=== PATIENT | female | born 1940 | race Caucasian/White ===

== ENCOUNTER 2018-03-15 10:22 | Outpatient (CLI) | payer OTHER, SELFPAY ==
[2018-03-15 11:58] LABS: Anion Gap 6.8 mmol/L (3-11); BUN 27 mg/dL (7-18); CO2 28.2 mmol/L (21.0-32.0); CREATININE 1.23 mg/dL (0.55-1.02); Calcium 9.9 mg/dL (8.5-10.1); Chloride 105 mmol/L (98-107); Estimated GFR 42.45 (mL/min/1.73m2); Glucose 90 mg/dL (70-100); Sodium 140 mmol/L (136-145)
== END 2018-03-15 10:42 ==
PROVIDERS: PCP Family Medicine; Visit Provider Internal Medicine
DX: I87.2 Venous insufficiency (chronic) (peripheral) (principal); R60.9 Edema, unspecified; I10 Essential (primary) hypertension
CPT/HCPCS: 36415; 80048

== ENCOUNTER 2021-05-16 15:31 | Emergency (ER) | payer MEDICARE, SELFPAY ==
[2021-05-16 15:35] VITALS: BP 150/90; PULSE 72; RESP 14; TEMP 36.1; O2SAT 96
--- NOTE | 2021-05-16 16:12 | ED.GENADUL_ITS ---
Discharge Plan Disposition Patient Disposition: HOME Condition: Stable Discharge Details Clinical Impression: Hand laceration Primary Care Provider: Brook Gomez ED Provider: Pascual Nam Home Meds and New Rx's Prescriptions: Continued levothyroxine 50 mcg Capsule 50 mcg PO DAILY RF: 0 Eliquis 5 mg Tablet 5 mg DAILY RF: 0 losartan 50 MG tablet 0.5 tab PO DAILY RF: 0 diclofenac sodium (bulk) 1,000 GM powder 1 gr . QID RF: 0 atorvastatin [Lipitor] 20 MG tablet 20 mg PO DAILY RF: 0 gabapentin 300 MG capsule 600 mg PO BID RF: 0 multivitamin 1 EACH capsule 1 tab PO DAILY RF: 0 cholecalciferol (vitamin D3) 1,000 UNITS tablet 2,000 units PO DAILY RF: 0 Vitamin C (ascorbate calcium) 480 GM powder 1 tab PO DAILY RF: 0 Discharge Instructions Instructions: Laceration (ED) Additional Instructions: Watch for any signs of infection and return immediately to the emergency department if these occur. Otherwise keep dressing in place for the next 24-48 hours and then keep wound clean and dry. Return to the emergency department 7 d ays for suture removal. HPI <Ileana Arechiga - Last Filed: 05/16/21 16:16> General Mode of arrival: ambulatory . Date/Time Provider Initiated Documentation: 05/16/21 16:12 . Limitations to Documentation: no limitations . Information obtained by: patient and RN notes reviewed . HPI Narrative: 81 year old female presents to ED with Right Palmar eminence Laceration which occured at approximately 1130 am. She has full ROM to Thumb. She is unsure of method of injury but reports she did grab onto a door casing and sustained a contusion to her right inner forearm and thinks this might have been where she cut her hand. She has a arrow shaped laceration/skin tear noted and bleeding is controlled upon initial examination. Patient is on Eliquis. PMHx includes HTN, Cushings disease. She is unsure of her last Tetanus vaccination. She has no other complaints, is alert and oriented. Related Data Home Medications Medication Instructions Recorded Confirmed Vitamin C (ascorbate calcium) 1 tab PO DAILY 07/22/17 05/16/21 atorvastatin [Lipitor] 20 mg PO DAILY 07/22/17 05/16/21 cholecalciferol (vitamin D3) 2,000 units PO DAILY 07/22/17 05/16/21 diclofenac sodium (bulk) 1 gr . QID 07/22/17 07/22/17 gabapentin 600 mg PO BID 07/22/17 05/16/21 losartan 0.5 tab PO DAILY 07/22/17 05/16/21 multivitamin 1 tab PO DAILY 07/22/17 05/16/21 Eliquis 5 mg DAILY 05/16/21 05/16/21 levothyroxine 50 mcg PO DAILY 05/16/21 05/16/21 Allergies Allergy/AdvReac Type Severity Reaction Status Date / Time adhesive tape Allergy Intermediate Unverified 05/16/21 15:43 Penicillins Allergy Unknown Unverified 05/16/21 15:43 pregabalin [From Lyrica] Allergy Unknown Unverified 05/16/21 15:43 Sulfa (Sulfonamide Allergy Unknown Unverified 05/16/21 15:43 Antibiotics) latex Allergy Unverified 05/16/21 15:43 General Stated Complaint: Laceration YAMILA: 3 Review of Systems <Ileana Arechiga - Last Filed: 05/16/21 16:16> All systems reviewed & are unremarkable except as noted in HPI and below PFSH <Ileana Arechiga - Last Filed: 05/16/21 16:16> All Active Problems (Updated 05/16/21 @ 17:09 by Pascual Nam NP) Hand laceration (Acute) Sensorineural hearing loss (SNHL) of both ears (Acute) Social History Smoking/Tobacco Use Status: Never Smoking risk assessment performed?: Yes Alcohol Intake: never Drug use: Never Substance use type: does not use Do you feel safe at home: Yes Do you feel safe in your relationship?: Yes Course <Ileana Arechiga - Last Filed: 05/16/21 16:16> Vital Signs Vital signs: Vital Signs Temperature 36.1 C L 05/16/21 15:35 Pulse 72 05/16/21 15:35 Respiratory Rate 14 05/16/21 15:35 Blood Pressure 150/90 H 05/16/21 15:35 Pulse Oximetry 96 05/16/21 15:35 Temperature 36.1 C L 05/16/21 15:35 Temperature Source Temporal Artery Scan 05/16/21 15:35 Pulse 72 05/16/21 15:35 Respiratory Rate 14 05/16/21 15:35 Respiratory Effort Non-Labored 05/16/21 15:42 Blood Pressure 150/90 H 05/16/21 15:35 Blood Pressure Position Sitting 05/16/21 15:35 Pulse Oximetry 96 05/16/21 15:35 Oxygen Delivery Method Room Air 05/16/21 15:35 Oxygen Flow Rate 0 05/16/21 15:35 Pain Level 0 05/16/21 15:35
[2021-05-16 17:28] VITALS: BP 150/90; PULSE 72; RESP 14; TEMP 36.1; O2SAT 96
--- NOTE | 2021-05-17 11:21 | ED.GENADUL_ITS ---
Discharge Plan Disposition Patient Disposition: HOME Condition: Stable Discharge Details Clinical Impression: Hand laceration Primary Care Provider: Brook Gomez ED Provider: Pascual Nam Home Meds and New Rx's Prescriptions: Continued levothyroxine 50 mcg Capsule 50 mcg PO DAILY RF: 0 Eliquis 5 mg Tablet 5 mg DAILY RF: 0 losartan 50 MG tablet 0.5 tab PO DAILY RF: 0 diclofenac sodium (bulk) 1,000 GM powder 1 gr . QID RF: 0 atorvastatin [Lipitor] 20 MG tablet 20 mg PO DAILY RF: 0 gabapentin 300 MG capsule 600 mg PO BID RF: 0 multivitamin 1 EACH capsule 1 tab PO DAILY RF: 0 cholecalciferol (vitamin D3) 1,000 UNITS tablet 2,000 units PO DAILY RF: 0 Vitamin C (ascorbate calcium) 480 GM powder 1 tab PO DAILY RF: 0 Discharge Instructions Instructions: Laceration (ED) Additional Instructions: Watch for any signs of infection and return immediately to the emergency department if these occur. Otherwise keep dressing in place for the next 24-48 hours and then keep wound clean and dry. Return to the emergency department 7 d ays for suture removal. Discharge Data Discharge Date/Time-TO BE ENTERED AT DEPARTURE: 05/16/21 17:36 Medical Decision Making Patient presenting to the emergency department for chief complaint of right hand laceration. This occurred when she attempted to catch herself from falling and grabbed the door trim. Patient has no other complaint at this time. States no loss of consciousness or head injury. Patient has flap laceration to the thenar eminence of the right hand that is subcutaneous but otherwise clean with all deep structures intact. Please see procedure note for wound repair. Tetanus was updated. HPI General Mode of arrival: ambulatory . Date/Time Provider Initiated Documentation: 05/16/21 16:12 . Limitations to Documentation: no limitations . Information obtained by: patient . History of Present Illness 81 year old F presents to the emergency department with the chief complaint of Right hand laceration, described as mild, with intensity rated at 2. Quality is described as aching and sharp, and is localized to the right and upper extremity. Patient reports no radiation. Patient started experiencing this hour(s) (1) and it has been constant. No relieving factors improve symptom(s), Movement worsens symptoms . Patient notes no other symptoms.. Patient did receive the following treatments prior to arrival, none Related Data Home Medications Medication Instructions Recorded Confirmed Vitamin C (ascorbate calcium) 1 tab PO DAILY 07/22/17 05/16/21 atorvastatin [Lipitor] 20 mg PO DAILY 07/22/17 05/16/21 cholecalciferol (vitamin D3) 2,000 units PO DAILY 07/22/17 05/16/21 diclofenac sodium (bulk) 1 gr . QID 07/22/17 07/22/17 gabapentin 600 mg PO BID 07/22/17 05/16/21 losartan 0.5 tab PO DAILY 07/22/17 05/16/21 multivitamin 1 tab PO DAILY 07/22/17 05/16/21 Eliquis 5 mg DAILY 05/16/21 05/16/21 levothyroxine 50 mcg PO DAILY 05/16/21 05/16/21 Allergies Allergy/AdvReac Type Severity Reaction Status Date / Time adhesive tape Allergy Intermediate Unverified 05/16/21 15:43 Penicillins Allergy Unknown Unverified 05/16/21 15:43 pregabalin [From Lyrica] Allergy Unknown Unverified 05/16/21 15:43 Sulfa (Sulfonamide Allergy Unknown Unverified 05/16/21 15:43 Antibiotics) latex Allergy Unverified 05/16/21 15:43 General Stated Complaint: Laceration YAMILA: 3 Review of Systems All systems reviewed & are unremarkable except as noted in HPI and below Integumentary/Breasts Skin/Breast: Reports as per HPI Hematologic/Lymphatic Hematologic/Lymphatic: Reports easy bruising PFSH All Active Problems (Updated 05/16/21 @ 17:09 by Pascual Nam NP) Hand laceration (Acute) Sensorineural hearing loss (SNHL) of both ears (Acute) Social History Smoking/Tobacco Use Status: Never Smoking risk assessment performed?: Yes Alcohol Intake: never Drug use: Never Substance use type: does not use Do you feel safe at home: Yes Do you feel safe in your relationship?: Yes Exam Const General: cooperative and no acute distress Orientation: alert, awake and oriented x3 Limitations: mental status not altered Resp Effort & Inspection: normal respiratory effort and able to speak in complete sentences Cardio Rate: regular rate Rhythm: regular rhythm Pulses: radial pulses present Neuro General: patient alert, patient awake, patient oriented x3, gait normal, tone normal, moves all extremities, normal light touch, pain and propioception and no focal motor deficits Motor: no movement abnormalities noted Sensory Exam: no sensory deficits noted Extrem General: normal exam except as noted Right upper extremity: elbow/forearm Details: abrasion and ecchymosis, wrist Details: ecchymosis and hand Details: normal capillary refill, neuromotor exam normal, neurosensory exam normal, normal ROM of fingers and laceration (Over the thenar eminence) Course Vital Signs Vital signs: Vital Signs Temperature 36.1 C L 05/16/21 15:35 Pulse 72 05/16/21 15:35 Respiratory Rate 14 05/16/21 15:35 Blood Pressure 150/90 H 05/16/21 15:35 Pulse Oximetry 96 05/16/21 15:35 Temperature 36.1 C L 05/16/21 17:28 Temperature Source Temporal Artery Scan 05/16/21 15:35 Pulse 72 05/16/21 17:28 Respiratory Rate 14 05/16/21 17:28 Respiratory Effort Non-Labored 05/16/21 15:42 Blood Pressure 150/90 H 05/16/21 17:28 Blood Pressure Position Sitting 05/16/21 15:35 Pulse Oximetry 96 05/16/21 17:28 Oxygen Delivery Method Room Air 05/16/21 15:35 Oxygen Flow Rate 0 05/16/21 15:35 Pain Level 2 05/16/21 17:28 Procedures Laceration Laceration 1: Site: hand Side (If applicable): right Size (cm): 2 Description: flap, irregular and clean Depth: simple, single layer Local Anesthetic: Lidocaine 1% Amount of anesthesia used (mL): 3 Pre-repair: wound explored, irrigated extensively and deep structures intact Skin layer closed with: other (Prolene) Size (cm): 4-0 Number of sutures: 4 Technique: simple, interrupted
== END 2021-05-16 17:36 | disposition home or self-care (01) ==
PROVIDERS: Emergency Provider Nurse Practitioner Family; PCP Family Medicine
DX: S61.411A Laceration without foreign body of right hand, initial encounter (principal); W26.8XXA Contact with other sharp object(s), not elsewhere classified, initial encounter
CPT/HCPCS: 12001; 90471

== ENCOUNTER 2021-05-23 14:14 | Emergency (ER) | payer OTHER, SELFPAY ==
[2021-05-23 14:25] VITALS: BP 138/86; PULSE 106; RESP 16; TEMP 36.6; O2SAT 97
--- NOTE | 2021-05-23 14:29 | W.ED.GENAD ---
Discharge Plan Disposition Patient Disposition: HOME Condition: Stable Discharge Details Clinical Impression: Suture check Primary Care Provider: Brook Gomez ED Provider: Amparo Rivera Home Meds and New Rx's Prescriptions: Continued levothyroxine 50 mcg Capsule 50 mcg PO DAILY RF: 0 Eliquis 5 mg Tablet 5 mg DAILY RF: 0 diclofenac sodium (bulk) 1,000 GM powder 1 gr . QID RF: 0 atorvastatin [Lipitor] 20 MG tablet 20 mg PO DAILY RF: 0 gabapentin 300 MG capsule 600 mg PO BID RF: 0 multivitamin 1 EACH capsule 1 tab PO DAILY RF: 0 cholecalciferol (vitamin D3) 1,000 UNITS tablet 2,000 units PO DAILY RF: 0 Vitamin C (ascorbate calcium) 480 GM powder 1 tab PO DAILY RF: 0 No Action glucosamine-chondroitin [Osteo Bi-Flex] 250-200 mg tablet 1 tab PO DAILY RF: 0 losartan 50 mg tablet 25 mg PO BID RF: 0 Discharge Instructions Additional Instructions: Keep wound clean and dry Allow to air dry as this will help it heal faster Return in 3 days for removal Return earlier with fever, chills, worsening pain, spreading redness Discharge Data Discharge Date/Time-TO BE ENTERED AT DEPARTURE: 05/23/21 14:38 Medical Decision Making Unfortunately patient's wound not completely healed and we will remove sutures on day 10, she will return in 3 days for reassessment There is no evidence of secondary infection and patient remains neurovascularly intact HPI General Mode of arrival: ambulatory. Date/Time Provider Initiated Documentation: 05/23/21 14:16. Limitations to Documentation: no limitations. Information obtained by: patient. HPI Narrative: This 81-year-old female presents for suture removal. She is 7 days status post placement to her right thumb. She denies any pain, strength or sensation change, decreased range of motion, or any additional complaints at this time. Related Data Home Medications Medication Instructions Recorded Confirmed Vitamin C (ascorbate calcium) 1 tab PO DAILY 07/22/17 05/26/21 atorvastatin [Lipitor] 20 mg PO DAILY 07/22/17 05/26/21 cholecalciferol (vitamin D3) 2,000 units PO DAILY 07/22/17 05/26/21 diclofenac sodium (bulk) 1 gr . QID 07/22/17 05/26/21 gabapentin 600 mg PO BID 07/22/17 05/26/21 multivitamin 1 tab PO DAILY 07/22/17 05/26/21 Eliquis 5 mg DAILY 05/16/21 05/26/21 levothyroxine 50 mcg PO DAILY 05/16/21 05/26/21 glucosamine-chondroitin 250 mg-200 1 tab PO DAILY tab 05/24/21 05/26/21 mg tablet losartan 50 mg tablet 25 mg PO BID tab 05/24/21 05/26/21 Allergies Allergy/AdvReac Type Severity Reaction Status Date / Time adhesive tape Allergy Intermediate Unverified 05/26/21 14:52 Penicillins Allergy Unknown Unverified 05/26/21 14:52 pregabalin [From Lyrica] Allergy Unknown Unverified 05/26/21 14:52 Sulfa (Sulfonamide Allergy Unknown Unverified 05/26/21 14:52 Antibiotics) latex Allergy Unverified 05/26/21 14:52 General Stated Complaint: SutureRem YAMILA: 5 Review of Systems Narrative: Review of systems negative x3 aside from where indicated PFSH All Active Problems (Updated 05/26/21 @ 15:05 by Ileana Arechiga) Visit for suture removal (Acute) Obesity (Chronic) [place]'s disease (Acute) AVNRT (AV kristyn re-entry tachycardia) (Acute) Afib (Chronic) Hand laceration (Acute) Suture check (Acute) Sensorineural hearing loss (SNHL) of both ears (Acute) Medical History Diabetes mellitus type 2 in obese History of DVT (deep vein thrombosis) History of fracture of right hip Hyperlipidemia Vertigo Surgical History History of revision of total hip arthroplasty 2014 Social History Smoking/Tobacco Use Status: Former Tobacco Use Smoking risk assessment performed?: Yes Alcohol Intake: never Drug use: Never Substance use type: does not use Do you feel safe at home: Yes Do you feel safe in your relationship?: Yes Exam Extrem Other: Right thumb with laceration site, no evidence of infection, still appears open, neurovascularly intact Course Vital Signs Vital signs: Vital Signs Temperature 36.6 C 05/23/21 14:25 Pulse 106 H 05/23/21 14:25 Respiratory Rate 16 05/23/21 14:25 Blood Pressure 138/86 05/23/21 14:25 Pulse Oximetry 97 05/23/21 14:25 Temperature 36.6 C 05/23/21 14:25 Temperature Source Skin 05/23/21 14:25 Pulse 106 H 05/23/21 14:25 Respiratory Rate 16 05/23/21 14:25 Blood Pressure 138/86 05/23/21 14:25 Blood Pressure Position Sitting 05/23/21 14:25 Pulse Oximetry 97 05/23/21 14:25 Oxygen Delivery Method Room Air 05/23/21 14:25 Oxygen Flow Rate 0 05/23/21 14:25
== END 2021-05-23 14:38 | disposition home or self-care (01) ==
LOC: ER 14:37
PROVIDERS: Emergency Provider Physician Assistant; PCP Family Medicine
DX: S61.011D Laceration without foreign body of right thumb without damage to nail, subsequent encounter (principal); X58.XXXA Exposure to other specified factors, initial encounter

== ENCOUNTER 2021-05-26 14:38 | Emergency (ER) | payer MEDICARE, SELFPAY ==
[2021-05-26 14:43] VITALS: BP 141/73; PULSE 82; RESP 16; TEMP 36.1; O2SAT 99
--- NOTE | 2021-05-26 14:54 | ED.GENADUL_ITS ---
Discharge Plan Disposition Patient Disposition: HOME Condition: Stable Discharge Details Clinical Impression: Visit for suture removal Primary Care Provider: Brook Gomez ED Provider: Ileana Arechiga Home Meds and New Rx's Prescriptions: Continued glucosamine-chondroitin [Osteo Bi-Flex] 250-200 mg tablet 1 tab PO DAILY RF: 0 losartan 50 mg tablet 25 mg PO BID RF: 0 levothyroxine 50 mcg Capsule 50 mcg PO DAILY RF: 0 Eliquis 5 mg Tablet 5 mg DAILY RF: 0 diclofenac sodium (bulk) 1,000 GM powder 1 gr . QID RF: 0 atorvastatin [Lipitor] 20 MG tablet 20 mg PO DAILY RF: 0 gabapentin 300 MG capsule 600 mg PO BID RF: 0 cholecalciferol (vitamin D3) 1,000 UNITS tablet 2,000 units PO DAILY RF: 0 Vitamin C (ascorbate calcium) 480 GM powder 1 tab PO DAILY RF: 0 No Action multivitamin 1 EACH capsule 1 tab PO DAILY RF: 0 Discharge Instructions Instructions: Stitches Removal (ED) Additional Instructions: Keep Band-Aid on the area for the next few days. You may apply bacitracin for the next couple of days. Please return for any red streaks or signs of infection. Follow up with primary care provider in 3-5 days. Return to ED sooner if any worsening or concerns. Increase oral fluids. Referrals: Brook Gomez [Primary Care Provider] - 3 days Medical Decision Making 2 sutures removed by myself, 2 sutures removed by hospital staff pharmacist bacitracin and Band- Aid applied post removal. Patient tolerated well. Discussed home care and strict return instructions, verbalized understanding. HPI General Mode of arrival: ambulatory . Date/Time Provider Initiated Documentation: 05/26/21 14:49 . Limitations to Documentation: no limitations . Information obtained by: patient and old records reviewed . HPI Narrative: 81 year old female presents for suture removal. Patient had 4 sutures placed to the right palm approximately 10 days ago. She was seen here on Sunday and was told to come back in 3 days which is today. She does have some scab formation noted. 2 sutures removed without difficulty. Will soak and attempt to remove the second 2. She has full range of motion noted to her hand. Related Data Home Medications Medication Instructions Recorded Confirmed Vitamin C (ascorbate calcium) 1 tab PO DAILY 07/22/17 05/26/21 atorvastatin [Lipitor] 20 mg PO DAILY 07/22/17 05/26/21 cholecalciferol (vitamin D3) 2,000 units PO DAILY 07/22/17 05/26/21 diclofenac sodium (bulk) 1 gr . QID 07/22/17 05/26/21 gabapentin 600 mg PO BID 07/22/17 05/26/21 multivitamin 1 tab PO DAILY 07/22/17 05/26/21 Eliquis 5 mg DAILY 05/16/21 05/26/21 levothyroxine 50 mcg PO DAILY 05/16/21 05/26/21 glucosamine-chondroitin 250 mg-200 1 tab PO DAILY tab 05/24/21 05/26/21 mg tablet losartan 50 mg tablet 25 mg PO BID tab 05/24/21 05/26/21 Allergies Allergy/AdvReac Type Severity Reaction Status Date / Time adhesive tape Allergy Intermediate Unverified 05/26/21 14:52 Penicillins Allergy Unknown Unverified 05/26/21 14:52 pregabalin [From Lyrica] Allergy Unknown Unverified 05/26/21 14:52 Sulfa (Sulfonamide Allergy Unknown Unverified 05/26/21 14:52 Antibiotics) latex Allergy Unverified 05/26/21 14:52 General Stated Complaint: SutureRem YAMILA: 5 Review of Systems Integumentary/Breasts Skin/Breast: Reports wounds (4 sutures noted to right thenar eminence) PFSH All Active Problems (Updated 05/26/21 @ 15:05 by Ileana Arechiga) Visit for suture removal (Acute) Obesity (Chronic) [place]'s disease (Acute) AVNRT (AV kristyn re-entry tachycardia) (Acute) Afib (Chronic) Hand laceration (Acute) Suture check (Acute) Sensorineural hearing loss (SNHL) of both ears (Acute) Medical History Diabetes mellitus type 2 in obese History of DVT (deep vein thrombosis) History of fracture of right hip Hyperlipidemia Vertigo Surgical History History of revision of total hip arthroplasty 2013 Social History Smoking/Tobacco Use Status: Former Tobacco Use Smoking risk assessment performed?: Yes Alcohol Intake: never Drug use: Never Substance use type: does not use Do you feel safe at home: Yes Do you feel safe in your relationship?: Yes Exam Extrem Right upper extremity: hand Details: other (4 sutures noted, scab formation, slight red edges, no warmth, induration or signs of infection.) Course Vital Signs Vital signs: Vital Signs Temperature 36.1 C L 05/26/21 14:43 Pulse 82 05/26/21 14:43 Respiratory Rate 16 05/26/21 14:43 Blood Pressure 141/73 H 05/26/21 14:43 Pulse Oximetry 99 05/26/21 14:43 Temperature 36.1 C L 05/26/21 14:43 Temperature Source Tympanic 05/26/21 14:43 Pulse 82 05/26/21 14:43 Respiratory Rate 16 05/26/21 14:43 Blood Pressure 141/73 H 05/26/21 14:43 Blood Pressure Position Sitting 05/26/21 14:43 Pulse Oximetry 99 05/26/21 14:43 Oxygen Delivery Method Room Air 05/26/21 14:43 Oxygen Flow Rate 0 05/26/21 14:43 Pain Level 0 05/26/21 14:43
[2021-05-26] MEDS: Bacitracin 1 PACKET (15:12)
== END 2021-05-26 15:19 | disposition home or self-care (01) ==
PROVIDERS: Emergency Provider Registered Nurse Emergency; PCP Family Medicine
DX: S61.411D Laceration without foreign body of right hand, subsequent encounter (principal); X58.XXXD Exposure to other specified factors, subsequent encounter; Z48.02 Encounter for removal of sutures

== ENCOUNTER 2021-07-07 13:26 | Outpatient (CLI) | payer MEDICARE, SELFPAY ==
--- NOTE | 2021-07-07 11:33 | DI.RAD_ITS ---
Exam(s) XR KNEE LT 3V AP,LAT,DORY EXAM: XR KNEE LT 3V AP,LAT,DORY CLINICAL HISTORY: pain in knee. TECHNIQUE: 2D digital imaging was performed of the left knee. Three images were obtained. AP, late ral and PA tunnel views were obtained. COMPARISON: No exams were available for comparison FINDINGS: BONES: No acute fracture is present. There is a tiny subcortical lucency in the lateral aspect of th e lateral femoral condyle which may represent an osteochondral defect. JOINTS: Moderately severe degenerative changes are seen in the left knee with joint space narrowing a nd periarticular spurring involving all 3 joint compartments. The findings are most marked at the pa tellofemoral joint. No joint effusion is seen. SOFT TISSUE: Normal. IMPRESSION: Tricompartment osteoarthritis. DATA REPOSITORY: RADIATION DOSE DELIVERED:
== END 2021-07-07 13:27 | disposition home or self-care (01) ==
LOC: DIORS 13:26
PROVIDERS: PCP Family Medicine; Referring Provider Family Medicine; Visit Provider Student in an Organized Health Care Education/Training Program
DX: M25.562 Pain in left knee (principal); M17.12 Unilateral primary osteoarthritis, left knee; S86.112A Strain of other muscle(s) and tendon(s) of posterior muscle group at lower leg level, left leg, initial encounter; X58.XXXA Exposure to other specified factors, initial encounter
CPT/HCPCS: 73562; 99214

== ENCOUNTER 2021-07-19 00:28 | Outpatient (CLI) | payer MEDICARE, SELFPAY ==
--- NOTE | 2021-07-19 08:40 | DI.MRI_ITS ---
Exam(s) MR LOWER EXTREMITY LT WO EXAM: MR LOWER EXTREMITY LT WO CLINICAL HISTORY: pain,rupture lt gastrocnemius muscle,[id number]. TECHNIQUE: Multiplanar multisequence MRI was performed. COMPARISON: No exams were available for comparison FINDINGS: There is significant patient motion artifact present.The patient was unable to complete the examinati on or tolerate repeat sequences. BONES: There is no fracture or contusion pattern. JOINTS: No significant joint effusion is seen in the knee. MUSCLES: The insertion sites of the gastrocnemius muscles are intact. There is fatty atrophy of the gastrocnemius muscles. There is marked fatty atrophy of the medial gastrocnemius muscle, particularl y distally. There is mild edema seen in the proximal lateral gastrocnemius muscle at the level of th e knee joint. The muscle fibers appear intact however. MENISCI: This is not a dedicated MRI of the knee. However, the medial meniscus appears unremarkable. There is degenerative signal seen in the body of the lateral meniscus. SOFT TISSUES: There is edema seen in the subcutaneous tissues of the lower leg. No focal fluid colle ction is seen. Varicose veins are seen in the lower leg. There is skin thickening seen particularly involving the distal half of the leg. LIGAMENTS: The ligaments appear grossly unremarkable. This is however, not a dedicated MRI of the kn ee. OTHER: Incidental note is made of a small popliteal cyst. IMPRESSION: 1. This is a limited examination. The examination is limited by significant patient motion artifact and the patient's inability to complete the examination. 2. Mild edema seen in the proximal aspect of the lateral gastrocnemius muscle. However, there is no evidence of a gastrocnemius muscle tear. 3. Fatty atrophy of the gastrocnemius muscles with marked fatty atrophy of the distal medial gastrocn emius. 4. Subcutaneous edema and skin thickening in the lower leg which may represent cellulitis. No focal fluid collection is seen. 5. Small popliteal cyst. DATA REPOSITORY:
== END 2021-07-19 00:48 ==
PROVIDERS: PCP Family Medicine; Visit Provider Student in an Organized Health Care Education/Training Program
DX: M25.562 Pain in left knee (principal); M71.22 Synovial cyst of popliteal space [Baker], left knee; M62.562 Muscle wasting and atrophy, not elsewhere classified, left lower leg; R60.0 Localized edema; S86.112A Strain of other muscle(s) and tendon(s) of posterior muscle group at lower leg level, left leg, initial encounter; X58.XXXA Exposure to other specified factors, initial encounter
CPT/HCPCS: 73718

== ENCOUNTER → 2021-07-22 09:42 | Outpatient (BNVA) | payer MEDICARE, SELFPAY | PROVIDERS: PCP Family Medicine; Referring Provider Family Medicine; Visit Provider Student in an Organized Health Care Education/Training Program | DX: M17.12 Unilateral primary osteoarthritis, left knee (principal); M17.11 Unilateral primary osteoarthritis, right knee | CPT/HCPCS: 99214 ==

== ENCOUNTER → 2022-01-12 10:09 | Outpatient (BNVA) | payer MEDICARE, SELFPAY | PROVIDERS: PCP Family Medicine; Referring Provider Family Medicine; Visit Provider Student in an Organized Health Care Education/Training Program | DX: Z96.641 Presence of right artificial hip joint (principal); Z96.642 Presence of left artificial hip joint; Z96.651 Presence of right artificial knee joint; M17.12 Unilateral primary osteoarthritis, left knee | CPT/HCPCS: 99213 ==

== ENCOUNTER 2022-02-20 10:52 | Outpatient (CLI) | payer MEDICARE, SELFPAY ==
--- NOTE | 2022-02-23 14:00 | DI.RAD_ITS ---
Exam(s) XR STANDING ALIGNMENT EXAM: XR STANDING ALIGNMENT CLINICAL HISTORY: preoperative TECHNIQUE: COMPARISON: No exams were available for comparison FINDINGS: AP views of the lower extremities were obtained for leg length determination and standing alignment. There are bilateral hip joint replacements. There are moderate degenerative changes of both knees i nvolving medial and lateral tibiofemoral joints.. IMPRESSION: RADIATION DOSE DELIVERED: Total DLP
== END 2022-02-20 10:53 | disposition home or self-care (01) ==
LOC: DIORS 02-28 10:52
PROVIDERS: PCP Family Medicine; Visit Provider Physician Assistant Surgical
DX: M17.12 Unilateral primary osteoarthritis, left knee (principal)
CPT/HCPCS: 77073

== ENCOUNTER → 2022-02-23 14:02 | Outpatient (BNVA) | payer MEDICARE, SELFPAY | PROVIDERS: PCP Family Medicine; Referring Provider Family Medicine; Visit Provider Physician Assistant Surgical | DX: Z01.818 Encounter for other preprocedural examination (principal); M25.562 Pain in left knee ==

== ENCOUNTER 2022-02-27 02:58 | Outpatient (CLI) | payer MEDICARE, SELFPAY ==
[2022-02-27 10:06] LABS: HCT 49.5 % (36.0-46.0); HGB 16.4 g/dL (11.2-15.7); MCH 30.9 pg (27.0-33.0); MCHC 33.1 % (32.0-36.0); MCV 93 fL (80-95); MPV 10.2 fL (8.0-11.0); Platelet Count 237 10^3/uL (130-400); RDW 12.7 % (11.7-14.6); RDW-SD 43.7 fL; WBC 8.61 10^3/uL (4.4-10.8)
[2022-02-27 11:14] LABS: Anion Gap 7.8 mmol/L (3-11); BUN 18 mg/dL (7-18); CO2 31.2 mmol/L (21.0-32.0); Calcium 10.1 mg/dL (8.5-10.1); Chloride 105 mmol/L (98-107); Estimated GFR 56.95 (mL/min/1.73m2); Glucose 79 mg/dL (74-106); Potassium 4.2 mmol/L (3.5-5.1); Sodium 144 mmol/L (136-145)
== END 2022-02-27 02:59 | disposition home or self-care (01) ==
LOC: LBO 02:58
PROVIDERS: PCP Family Medicine; Visit Provider Student in an Organized Health Care Education/Training Program
DX: M25.562 Pain in left knee (principal); M17.12 Unilateral primary osteoarthritis, left knee; Z01.818 Encounter for other preprocedural examination; Z01.812 Encounter for preprocedural laboratory examination
CPT/HCPCS: 36415; 80048; 85027

== ENCOUNTER 2022-03-01 07:27 | Observation (INO) | payer MEDICARE, SELFPAY ==
[2022-03-01] VITALS (18 sets, daily range): BP systolic 86–166; BP diastolic 34–102; PULSE 38–67; RESP 15–22; TEMP 35.4–36.7; O2SAT 93–99; BMI 45.1
--- NOTE | 2022-03-01 06:12 | W.ANESPRE ---
General Info Date of Service Date Performed: 03/01/22 Height: 5 ft 3 in Weight: 115.468 kg Body Mass Index (BMI): 45.1 Surgical Procedure: Operation Date: 03/01/22 07:40 Proposed Procedure Side Surgeon p Knee Total Arthroplasty Cementless Left Mc Bergman MD Meds Allergies and Home Medications Allergies Allergy/AdvReac Type Severity Reaction Status Date / Time adhesive tape Allergy Intermediate Verified 03/01/22 06:16 Penicillins Allergy Unknown Verified 03/01/22 06:16 pregabalin [From Lyrica] Allergy Unknown Verified 03/01/22 06:16 Sulfa (Sulfonamide Allergy Unknown Verified 03/01/22 06:16 Antibiotics) latex Allergy Verified 03/01/22 06:16 Home Medication Medication Instructions Recorded ascorbate calcium (vitamin C) 814 1 tab PO DAILY 07/22/17 mg/gram oral powder (Vitamin C (ascorbate calcium)) atorvastatin 20 mg tablet (Lipitor) 20 mg PO DAILY 07/22/17 cholecalciferol (vitamin D3) 25 2,000 units PO DAILY 07/22/17 mcg (1,000 unit) tablet diclofenac sodium (bulk) 100% 1 gr . QID 07/22/17 powder gabapentin 300 mg capsule 600 mg PO BID 07/22/17 multivitamin 1 tab PO DAILY 07/22/17 levothyroxine 50 mcg capsule 50 mcg PO DAILY 05/16/21 losartan 50 mg tablet 25 mg PO BID 05/24/21 triamterene 37.5 0.5 tab PO DAILY 01/12/22 mg-hydrochlorothiazide 25 mg tablet apixaban 5 mg tablet (Eliquis) 5 mg PO BID 01/13/22 Current Visit Medications: Current Medications Generic Name Dose Route Start Last Admin Trade Name Freq PRN Reason Stop Dose Admin Acetaminophen 1,000 mg 03/01/22 06:00 Acetaminophen 500 Mg Tab PO PREOP JOEY Celecoxib 400 mg 03/01/22 06:00 Celecoxib 200 Mg Cap PO PREOP JOEY Gabapentin 300 mg 03/01/22 06:00 Gabapentin 300 Mg Cap PO PREOP JOEY Tranexamic Acid 1,000 mg/ 60 mls @ 360 mls/hr 03/01/22 06:00 Sodium Chloride IVPB 03/01/22 18:00 PREOP JOEY Ringer's Solution 1,000 mls @ 80 mls/hr 03/01/22 06:00 IV 11/22 23:59 INFUSION JOEY Cefazolin Sodium 3,000 mg/ 100 mls @ 200 mls/hr 03/01/22 06:00 Sodium Chloride IVPB 03/01/22 18:00 PREOP JOEY IV Miscellaneous Supplies 1 each 03/01/22 06:00 Iv Access IV 03/30/22 23:59 DIRECTED JOEY Sodium Chloride 0 ml 03/01/22 06:00 Normal Saline Flush 10 Ml Syr IV 03/30/22 23:59 PRN PRN Sodium Chloride 0 ml 03/01/22 06:00 Normal Saline 10 Ml Vial IJ 03/30/22 23:59 DIRECTED PRN Sterile Water 0 ml 03/01/22 06:00 Water,Injection,Sterile 10 Ml Vial IJ 03/30/22 23:59 DIRECTED PRN PFSH Active Problems Active Problems: Problem Status Onset Code Sensorineural hearing loss (SNHL) of both ears H90.3 Afib I48.91 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 Obesity E66.9 Osteoarthritis of left knee M17.12 Osteoarthritis of right knee M17.11 Medical History Medical History (Updated 03/01/22 @ 06:15 by Wilner Rodriguez) Asthma Chronic shortness of breath Diabetes mellitus type 2 in obese pt/ denies this History of DVT (deep vein thrombosis) History of fracture of right hip HTN (hypertension) Hyperlipidemia Vertigo Surgical History Surgical History (Updated 02/28/22 @ 10:30 by Jasper Bunn) History of cardiac radiofrequency ablation History of revision of total hip arthroplasty 2013 Tobacco Smoking/Tobacco Use Status: Former Tobacco Use Alcohol Alcohol Intake: never Substance Use Substance use: Never Substance use type: does not use Vital Signs and Lab Results Lab Results Blood Type / Crossmatch: No Data to Display Complete Blood Count: White Blood Count 8.61 10^3/uL (4.4-10.8) 02/27/22 09:59 Red Blood Count 5.30 10^6/uL (3.93-5.22) H 02/27/22 09:59 Hemoglobin 16.4 g/dL (11.2-15.7) H 02/27/22 09:59 Hematocrit 49.5 % (36.0-46.0) H 02/27/22 09:59 Platelet Count 237 10^3/uL (130-400) 02/27/22 09:59 Complete Metabolic Panel: Sodium 144 mmol/L (136-145) 02/27/22 09:59 Potassium 4.2 mmol/L (3.5-5.1) 02/27/22 09:59 Chloride 105 mmol/L (98-107) 02/27/22 09:59 Carbon Dioxide 31.2 mmol/L (21.0-32.0) 02/27/22 09:59 BUN 18 mg/dL (7-18) 02/27/22 09:59 Creatinine 1.0 mg/dL (0.55-1.02) 02/27/22 09:59 Est GFR (CKD-EPI 2020) 56.95 (mL/min/1.73m2) 02/27/22 09:59 Calcium 10.1 mg/dL (8.5-10.1) 02/27/22 09:59 Glucose 79 mg/dL (74-106) 02/27/22 09:59 Liver Function Panel: No Data to Display Coagulation Panel: No Data to Display Cardiac Panel: No Data to Display Arterial Blood Gas: No Data to Display Venous Blood Gas: No Data to Display Pancreas Panel: No Data to Display Thyroid Panel: No Data to Display Infectious Disease: No Data to Display Blood Cultures: No Data to Display Toxicology Panel: No Data to Display Imaging and Studies Imaging and Studies Study information below may be from another EMR and interpreted by another provider. Please see original notes in EMR for more complete details. Echocardiogram Summary: 08/02/21: a fib, normal rv/lv systolic function LVEF 55%, aortic sclerosis without stenosis. Anesthesia Assessment and Plan Anesthesia History Personal History: No History of Anesthesia Complications Family History: No Family History of Anesthesia Complications Exercise Tolerance Exercise Tolerance: Metabolic Equivalents<4 Cardiac & Pulmonary Exam Cardiac Exam: Normal S1/S2 Heart Sounds Pulmonary Exam: Clear Bilateral Breath Sounds Implantable Cardiac Device Does patient have a Pacemaker or an ICD?: No Airway Exam Known Difficult Airway: No Mallampati Class: 2 Mouth Opening: Normal (> 3cm) Thyromental Distance: Less than 3 cm Neck Range of Motion: Full ROM Neck Circumference: Thick Teeth Condition: Normal Dentition ASA Classification ASA Score: ASA 3 Emergency Case?: No NPO Status NPO Status: NPO Clears >2 hours, Solids >8 hours Anesthesia Plan Resuscitation Status: Full Code Anesthesia Technique: Spinal Anesthesia Airway Planned: Natural Airway Pain Management: Surgeon and patient request nerve block Monitors Used: Standard Monitors Preoperative Comments:: 82 yo female for TKA. Sig PMHx: DVT/Afib (apixaban), DM2, vertigo, cushings (fixed), BMI 45, former smoker (quit 1990), never EtOH, hypothyroid (on replacment), CKDIII, HTN (losartan), ADRIENNE (bipap), asthma (PRN albuterol). ECHO: LVEF 55%, no sig valve dz. MPI: no ischemia.
[2022-03-01] MEDS: Celecoxib 200 MG CAP 400 MG PO (06:46)
[2022-03-01] MEDS: Acetaminophen 500 MG TAB 1000 MG PO ×3 (06:47→19:54)
[2022-03-01] MEDS: Gabapentin 300 MG CAP PO (06:48)
[2022-03-01] MEDS: Lactated Ringers 1,000 ML 80 ML IV ×2 (07:02→21:46)
[2022-03-01] MEDS: ceFAZolin 3,000 MG in Normal Saline 100 ML 200 MG IVPB (07:53)
--- NOTE | 2022-03-01 08:37 | W.ANESNERVE ---
Nerve Block Single Injection Procedure Date and Time Date Performed: 03/01/22 Procedure Start: 07:12 Location Where Procedure Performed Procedure Location: Day Surgery Unit Reason Performed: Postoperative Analgesia Requesting Provider: Mc Bergman Timeout Performed Timeout Performed: Yes Monitoring Used ECG, Blood Pressure and SpO2 Sterility Sterility: Hand Hygiene, Surgical Cap, Surgical Mask, Sterile Gloves and Chlorhexidine Sedation Given During Procedure Sedation Given (Indicate Dose Given): No Sedation given Patient Mental Status Patient Mental Status: Awake Nerve Block 1st Nerve Block: Laterality: Left Block Type: Adductor Canal Needle / Catheter Used: 120mm SonoPlex II Local Anesthetic Bolus (Indicate Dose Given): Lidocaine used for local infiltration of skin, Injected in 3-5ml increments after negative blood aspiration and Bupivacaine 0.375% Dose:: 10 mL Additives (Indicate Dose Given): None Ultrasound: Sterile probe cover and gel used Ultrasound Image Saved?: Yes Nerve Stimulator: Not Used Paresthesia: None Procedure Tolerated: No Complications Procedure Outcome: Successful Performed By: Zoraida Rojo Supervised By: Reji Feldman
[2022-03-01] MEDS: ceFAZolin 1 GM/50 ML BAG IVPB ×2 (13:48→21:45)
--- NOTE | 2022-03-01 14:11 | W.ANESPOSTOP ---
Postoperative Evaluation Date, Time and Location Date Performed: 03/01/22 Time Performed: 10:12 Patient Location: PACU Vital Signs Most Recent Imported Vital Signs: Most Recent Vital Signs Temp Pulse Resp BP Pulse Ox 35.4 C L 51 L 16 139/60 97 03/01/22 12:38 03/01/22 12:38 03/01/22 12:38 03/01/22 12:38 03/01/22 12:38 Pain Score Most Recent Pain Score: Most Recent Pain Score Pain Level 0 03/01/22 13:48 Assessment Mental Status: Awake (Alert & Oriented to Patient Baseline) Airway and Respiratory Function: Patent airway with normal (patient baseline) respiratory exam Cardiovascular Function: Hemodynamically Stable Hydration Status: Adequately Hydrated Nausea & Vomiting: No Nausea or Vomiting Pain: Pt. Denies Any Pain Peripheral Nerve Block: Patient did not receive a nerve block
--- NOTE | 2022-03-01 14:44 | PT.INIE ---
Date of service: 03/01/22 Time of Service: 14:44 PT Notes Visit Reasons: TKA Physical Therapy Day Surgery Initial Evaluation Date: 03/01/2022 Referring Doctor: HERBER Kaplan PT Orders: PT CONSULT: S/P Ortho surgery Precautions: WBAT on R LE with AD. Patient Profile/Admitting Diagnosis: Beatriz is an 82-year-old female with primary unilateral osteoarthritis of the right knee and is status post right total knee arthroplasty on postoperative day 0. PMHX: Medical History? Diabetes mellitus type 2 in obese History of DVT (deep vein thrombosis) History of fracture of right hip Hyperlipidemia Vertigo Surgical History? History of revision of total hip arthroplasty 2013 Social History/Home Situation: Lives lone in a private home with one-step to enter with rails on both sides. 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 Equipment Owned/DME: [facility] Subjective: Denies headache, chest pain, lightheadedness. Reports a mild ache in the front of her right thigh that minimally limityed ambulation distance. Objective: General Observation: Supine in bed. IV through right UE. TEDS on left leg. MILTON wraps to R LE. Cryocuff to R knee. Mental Status: Alert and oriented x4. Pain: 2-3/10 in the R anterior thigh ROM: Right Lower Extremity: Hip flexion limited by abdominal pannus. Hip abduction WFL. Knee flexion 20 degrees to 90 degrees. Knee extension -20 degrees. Ankle dorsiflexion to neutral. Ankle plantarflexion WFL. Strength: Right Lower Extremity: Hip flexors 4/5. Hip abductors 4/5. Knee flexors 3-/5. Knee extensors 3-/5. Ankle dorsiflexors 3/5. Ankle plantarflexors 4-/5. Sensation: Intact as to pain and light pressure in bilateral lower extremities Bed Mobility/Transfers: Supine to sit supine to sit with HOB 30 degrees Sit to stand minimal assist Stand to sit contact guard assist Bed to chair contact guard assist Gait: 150 feet using front wheeled walker with step to gait pattern requiring wheelchair follow for safety with report of a mild ache in the left anterior thigh that minimally limited distance. THERA EX: SLR to about 45 degrees x 5 Seated hip flexion x 5 Ankle DF/PF x 10 LAQ x 5 Balance: Static Sitting: Normal Dynamic Sitting: Normal Static Standing: Fair Dynamic Standing: Fair Special Tests: Mobility Limitations Standardized [employer] AM-PAC 6 clicks Basic Mobility Inpatient Short Form: Raw Score: 20 CMS Score: 36% deficit Informed Consent/Education: Patient instructed in purpose of PT consult. Education and training on initial set of exercises that can be done at home have been initiated with patient. Assessment: Beatriz is an 82-year-old female with primary unilateral osteoarthritis of the right knee and is status post right total knee arthroplasty on postoperative day 0. Patient presents with clinical signs and symptoms consistent with current/admitting diagnoses that have resulted to mobility limitations, gait instability, generalized weakness, and impairment of motor control as demonstrated by the following impairment level findings: 1. Decreased strength to R knee major muscle groups 2. Impaired standing balance 3. Limitation of joint range of motion in R knee Impairments are contributing to the following functional limitations: 1. Inability to safely ambulate without assistive device 2. Increase completion time for mobility ADL performance 3. Increased fall risk Patient is assessed as a 86923 moderate complexity based on the following: History: 82-year-old female with impairment level findings, functional limitations, and past medical history as indicated above Examination: Demonstrable impairment in strength, balance, and mobility level with underlying impairments and functional limitations as documented above Presentation: Evolving Decision Makin moderate complexity Goals: Goals X1 week 1. Supine-Sit independent 2. Sit-Supine independent 3. Sit-Stand independent 4. Stand-Sit independent with FWW 5. Bed-Chair independent with FWW 6. Chair-Bed independent with FWW 7. Independent gait on level surface with use of FWW for at least 300 feet without report of pain nor dyspnea 8. Independent stair negotiation while holding onto B rails for at least 3 steps without report of pain nor dyspnea 9. Independent with home exercise program 10. Good static and dynamic standing balance/tolerance Plan of Care/Treatment Plan: 1-2x/day, 7 days/week x 1 week. Plan of care has been reviewed with the DISTRIBUTION TECHNICIAN providing the service under Physical Therapy direction. Initiate Physical Therapy intervention for pain management as needed, strengthening, bed mobility, transfers, gait, stairs, balance training, and use of assistive device. DISCHARGE RECOMMENDATIONS: [] Home with no services [] [X] Home with services. Home when medically cleared by orthopedic surgeon. Patient will benefit from home health PT services in order to progress mobility level using least restrictive assistive ambulatory device, assess home safety, identify additional equipment needs, and establish a functional maintenance program that will increase ability of patient to remain at home. [] Home with outpatient PT [] [] SNF for continued rehabilitation [] [] Paper Folding Machine Operator Care [] [] SNF versus LTC based on ability to participate and progress [] TREATMENT CODE/TIME: 73508 x 20 minutes, 30736 x 26 minutes beginning at 14:44 PM. Thank you for the opportunity to participate in the care of this patient. Irma Paredes PT, DPT, CLT [facility] [place], [place]
[2022-03-01 16:07] LABS: Source Nasal/Nares
[2022-03-01 16:45] LABS: COVID-19 PCR Negative (Negative)
[2022-03-01] MEDS: Normal Saline Flush 10 ML SYR IV (18:07)
--- NOTE | 2022-03-01 19:21 | ROE_ITS ---
Date of service: 03/01/22 Time of Service: 09:30 Operative Note Operative Note DATE OF PROCEDURE: 03/01/22 PRE-OP DIAGNOSIS: Left Knee Osteoarthritis with Osteochondral Lesion POST-OP DIAGNOSIS: same PROCEDURE: [Right][Left] Total Knee Replacement SURGEON: Mc Bergman ELECTRICAL AND INSTRUMENT TECHNICIAN: Caridad Francis ANESTHESIA TYPE: Spinal Refer to Anesthesia Record ESTIMATED BLOOD LOSS: 150 PATHOLOGY: none sent COMPLICATIONS: None Patient was transported to: PACU Patient's condition: stable Implants: 1. Depuy Attune Cruciate Retaining Femoral Component, Size 4 2. Depuy Attune Rotating Platform Tibial Component, Size 4 3. Depuy Attune 4x8 CR,RP Poly 4. Depuy Attune Patellar Component, Size 35 Indications: I have seen Beatriz in clinic for symptoms of knee arthritis, confirmed with radiographic findings. She has exhausted nonoperative methods and was having significant limitations in daily function and desired better function and less pain. I discussed the technical details of a knee replacement. I explained the risks of the procedure to include, but not limited to, bleeding, infection, pain, stiffness, fracture, damage to nerves and vessels, damage to muscles and tendons, loosening, need for repeat procedure, blood clot and cardiopulmonary demise. Despite these risks, Beatriz elected to proceed. Findings: There was significant signs of arthritis throughout the knee with a focal osteochondral defect involving most of the posterior weigh-bearing surface of the lateral femur. Procedure Description: Beatriz was greeted in the preoperative holding area where the correct side was identified and marked. The consent was reviewed with the patient and signed. The history and physical was updated. All questions were answered. Preoperative mediacations were administered: Acetaminophen 1000mg, Celebrex 400mg, and Gabapentin 300mg. An adductor canal block was then administered by the anesthesia team in the PACU. Beatriz was taken back to the operating room. A spinal anesthestic was then administered. The patient was placed into the supine position on the operating room table. A nonsterile tourniquet was placed high onto the leg but only used for cementing. Posts were placed for positioning during the procedure. All bony prominences were well padded. Prophylactic antibiotics in the form of Cefazolin were administered. 1g of Tranxemic Acid was given intravenously within 30 minutes of incision. The left leg was then prepped with Chloraprep and draped in a standard fashion with impervious stockinette and extremity drape. A second prep with Chloraprep was performed prior to placing Ioband. A timeout to confirm correct identity, side and site, procedure, allergies, anesthesia, and medical concerns was performed. With the knee in some flexion, a midline incision was made overlying the knee. Full thickness skin flaps were raised once the extensor mechanism was encountered. These were raised medially and laterally. Any bleeding was controlled with electrocautery. Once the extensor mechanism was fully exposed, a medial parapatellar arthrotomy was performed in a flexed position. All bleeding from the arthrotomy and the geniculate arteries was coagulated. A medial subperiosteal peel was performed with electrocautery to the midcoronal plane. The fat pad was removed while keeping the patellar tendon protected. The anterior distal femur synovium was removed for later visualization. The ACL and PCL were resected and the anterior horn of the lateral meniscus was transected. The knee was then flexed with the patella everted. There was a large osteochondral defect with surrounding cartilage loss involving the majority of the lateral femur, mostly posterior. Using a step drill, and based on preoperative templating, the femoral canal was entered. This was done with a step drill without any difficulty. The intramedullary distal femoral cut guide was inserted, set to a 6 degree valgus cut and 9mm cut thickness. The distal femoral cut guide was then held in position and pinned. With the soft tissues protected, the distal cut was performed. This was passed over a few times to ensure a planar cut. I then turned attention to the tibia. The extramedullary guide was placed onto the leg. The distal aspect was slid medial to adjust for position of center of ankle and stay in line with shaft of the tibia. Approximately 3-5 degrees of posterior slope was kept in the proximal cutting guide. The center of the guide was aligned with the PCL. The stylus was used to assess cut thickness. The medial side, most involved side, was set for a 4mm cut. This was then held in position and pinned into place with 2 additional pins and a cross pin for stability. The medial and lateral collateral ligaments were protected and the cut was performed. With this completed, it was assessed and noted to be of appropriate dimensions. The guide was removed. A spacer block was inserted and the knee was brought into extension. The 8mm spacer block provided full extension, without hyperextension and with stability of both the medial and lateral collateral ligaments was assessed. The pins from the femur and the tibia were then removed. The distal femur was then sized. The anterior stylus was placed onto the lateral ridge of the anterior femur. This indicated a size 4 femur. The external rotation of the guide was adjusted to 0 degrees to match the epicondylar axis, perpendicular to [place]?s line. The 4-in-1 cutting guide was the placed. The posterior medial femur cut was evaluated and appeared of good thickness. The spacer block was inserted underneath the cutting guide and stability was confirmed in 90 degrees of flexion. An adilene wing was used to confirm appropriate position of the anterior cut to avoid notching. This cutting guide was ensured to be flush on the cut surface and then pinned into place with headed pins. While protecting the soft tissues, quad tendon, and collateral ligaments, the anterior and posterior cuts were performed with a saw. The central two pins were removed and the posterior and anterior chamfers were cut next. The notch-cutting guide was placed. This was pinned to lateralize the femoral component as much as possible while keeping it flush on the cut surface. This was then pinned into position. A reciprocating saw was used to make the small notch cut. A trial CR femoral component was then inserted, impacted down to the cut surfaces, and the lug holes were drilled. A provisional trial tibial component was placed and the knee was brought through range of motion. There was noted to be excellent extension and flexion. There was no significant instability. The patella was tracking without thumbs. The tibial cut surface was fully exposed. The medial and lateral menisci were removed. The tibia was then sized as a 4. The tibia had been previously marked during trialing to correspond to the center of the tibial component to help with rotation. The trial was aligned to this naveen, approximately rotated to the medial 1/3rd of the tibial tubercle. The trial was pinned into place. The tibia was prepared with a reamer and a keel punch. The knee was then brought into extension and the patella was measured as 23mm. Using the patellar clamp and cut guide, this was resected to a flat surface with at least 13mm of thickness remaining. The size 35 patella fit the best. This was oriented and then clamped into position. The lugs were drilled. The trial components were removed. The final components, except for the polyethylene were opened on the back table. The periosteal and capsular tissues, especially posteriorly, around the knee were then systematically injected with a periarticular cocktail consisting of 246mg of Ropivacaine, 0.5mg of Epinephrine, 0.08mg of Clonidine, and 30mg of Ketorolac, diluted to 100cc.. The tourniquet was then inflated to 275mmHg. The knee was thoroughly irrigated with a pulse lavage and dried. On the back table, with the implants opened, the cement was mixed. 2 batches of medium viscosity cement were prepared with vacuum assistance. After the cement was ready it was placed on to the back side of the tibial component. A small amount was placed onto the posterior flange of the femur. Cement was manual pressurized and impregnated into the cut surface of the tibia. The tibial component was then inserted into the cut surface and impacted into position. Excess cement was removed and the component was reimpacted. Again, excess cement was removed and our attention was then turned to the femur. The femoral cut surface was once again dried and cement was manually impacted into the cut surface. The femoral component was lined with the lug holes and impacted. Excess cement was removed. It was ensured to be down against the cut surface. The trial polyethylene was then inserted and the leg was brought out into full extension for the duration of the cement curing process, approximately 18min. Cement was lastly manually impacted into the cut surface of the patella and the patellar button was clamped into position and held. During this process attention was turned to the gutters of the knee and for all interfaces for any excess cement. While the cement was hardening, the knee was irrigated with Surgiphor Betadine solution. It was allowed to sit in the knee for 3 minutes and then it was thoroughly irrigated with saline. After the cement had finally cured, approximately 18min, the clamp was removed from the patella and the knee was taken through range of motion. A size 8mm polyethylene component provided the best range of motion and stability with less than 2mm gapping with medial and lateral stress and full extension without significant hyperextension. The patella was tracking with a no-thumbs technique. The trial poly was removed and once again the knee was checked for any loose, excess, or errant cement. The poly component was then inserted into position after cleaning and drying the tibial tray. The capsule was then reapproximated with a No. 1 Vicryl at multiple locations. The capsule was finally closed with a No. 2 Stratafix, barbed suture. The tourniquet was then released and the arthrotomy appeared watertight without significant bleeding. The second dosing of 1g TXA was started. Deep tissues were then reapproximated with 0 Vicryl and 2-0 Vicryl. The skin was closed with a running 3-0 Monocryl in a subcuticular fashion. This was reinforced with skin glue. A Mepilex silver dressing was applied along with a [id number] MILTON wrap. A CryoCuff was applied. Beatriz was transferred to the hospital bed without difficulty an suffering no apparent complication. Beatriz has a good prognosis. Physical therapy will start today and without restrictions, weight-bearing as tolerated. She will return to her home Apixaban dose for DVT prophylaxis.
[2022-03-01] MEDS: Celecoxib 200 MG CAP PO (19:54)
[2022-03-01] MEDS: Losartan 50 MG TAB 25 MG PO (19:54)
[2022-03-01] MEDS: Apixaban 5 MG TAB PO (19:54)
[2022-03-01] MEDS: Gabapentin 300 MG CAP 600 MG PO (19:55)
[2022-03-01] MEDS: oxyCODONE 5 MG TAB PO (22:01)
[2022-03-02 02:59] VITALS: BP 138/68; PULSE 56; RESP 17; TEMP 36.8; O2SAT 97
[2022-03-02] MEDS: Normal Saline Flush 10 ML SYR IV (04:44)
[2022-03-02] MEDS: ceFAZolin 1 GM/50 ML BAG IVPB (04:44)
--- NOTE | 2022-03-02 07:07 | DSE_ITS ---
Date of service: 03/02/22 Time of Service: 07:30 DS: Diagnosis Discharge Diagnosis (1) Osteoarthritis of left knee: Status: Acute Asessment and Plan: s/p TKA on 03/01/22 Discharge Plan Disposition Patient Disposition: HOME W/HOME HEALTH SERVICE Condition: Good Discharge Details Reason For Visit: TKA Admit Date/Time: 03/01/22 06:01 Admit Provider: Mc Bergman Attending Provider: Mc Bergman Primary Care Provider: Brook Gomez Hospital Course Hospital Course: Beatriz was admitted to the medical/surgical floor following the procedure. The surgery was tolerated well without any notable medical, surgical, or anesthetic complications. Mobilization began postoperatively. She was voiding spontaneously. Vitals were stable. Physical therapy worked with the patient and was cleared for discharge home. No acute medical issues. Pain was controlled on oral regimen. Home Meds and New Rx's Prescriptions: New acetaminophen 500 mg tablet 1,000 mg PO Q8H PRN (Reason: pain) Qty: 90 3RF pantoprazole 40 mg tablet,delayed release (DR/EC) 40 mg PO DAILY Qty: 30 0RF oxycodone 5 mg tablet 2.5 - 5 mg PO Q4H Qty: 10 0RF celecoxib 200 mg capsule 200 mg PO BID PRN (Reason: pain) Qty: 60 1RF Continued triamterene-hydrochlorothiazid 37.5-25 mg tablet 1 tab PO DAILY losartan 50 mg tablet 25 mg PO BID levothyroxine 50 mcg Capsule 50 mcg PO DAILY Eliquis 5 mg tablet 5 mg PO BID atorvastatin [Lipitor] 20 MG tablet 20 mg PO DAILY gabapentin 300 MG capsule 600 mg PO BID multivitamin 1 EACH capsule 1 tab PO DAILY cholecalciferol (vitamin D3) 1,000 UNITS tablet 2,000 units PO DAILY Vitamin C (ascorbate calcium) 480 GM powder 1 tab PO DAILY Discontinued diclofenac sodium (bulk) 1,000 GM powder 1 gr . QID Discharge Instructions Additional Instructions: Total Knee Discharge Instructions Activity: The most important activity is to walk and to work on gentle motion (both flexion and extension). You should try to take short walks a few times a day. It is important that when resting you work on keeping the knee straight. Avoid putting a pillow behind the knee as this will encourage flexion. Work on range of motion exercises as provided by Physical Therapy. - Start outpatient physical therapy within 2 weeks. - You should wear the MICKY hose on both legs for 2 weeks. You may remove these at night. You may also use any compression sock in place of the MICKY hose. - Utilize [employer] to review exercises, see videos on exercises and obtain basic information pertaining to your surgery and your recovery. Dressing: Remove the Jaret wrap by 2 days after your surgery and put on the MICKY stocking given to you from the hospital. Keep the surgical dressing (underneath the JARET wrap) in place for at least one week. After the first week it may be removed and replaced with light gauze and tape or nothing. The wound and dressing may get wet after 3 days but avoid soaking the dressing or otherwise it will need to be changed. Many people prefer covering the dressing with cling wrap (saran wrap) to minimize it from getting soaked. If it gets wet, just pat dry. If it starts to peel off then it will need to be changed. Medications: - You should take Tylenol and anti-inflammatory Celebrex as your primary pain control medications. If the Celebrex is too expensive or not covered, please call the office for another alternative (Advil/Ibuprofen or Naproxen/Aleve) - You have been prescribed a stronger pain medication Oxycodone for breakthrough pain, take as needed as prescribed. - You have also been prescribed a stomach acid reduction agent Pantoprozole to help reduce stomach acid and reflux. - You will continue taking your Apixaban for DVT prevention unless instructed otherwise. - If you have constipation you should take Colace or Miralax (both [id number]). It takes most people 3-4 days to have a bowel movement. Follow-up: 2 weeks If you have any acute concerns or questions, please do not hesitate to contact the office at [phone]. You may contact Dr. Bergman with any questions after hours through the hospital at [phone] or on his cell phone at [phone]. 1. Encounter Date and Reason I certify that Beatriz Mayberry was seen by Mc Bergman MD on 03/02/22 and that I had a [id number] encounter with this patient that meets the physician face to face encounter requirements. 2. Clinical Findings Supporting Skilled Need and Homebound Status I certify that home health services are medically necessary, include either intermittent residential and/or physical/speech therapy, and that this patient is homebound in that absences from the home require considerable and taxing effort and are infrequent or of short duration, or are attributable to the need to receive medical care. [X] (a) Attached documentation from encounter provides clinical findings supporting skilled need and homebound status (including what assistance patient requires to leave the home). The encounter with the patient was in whole, or in part, for the following medical condition, which is the primary reason for home health care: TKA Senior Living: Physical Therapy: Beatriz will benefit from home health physical therapy to help improve mobility, knee motion and strength following total knee arthroplasty. She is WBAT with assistive devices. She will also benefit from occupational therapy to assist with managing ADLs in consideration of recent limitations from knee surgery. Speech Therapy: Homebound: Beatriz is unable to leave her home unassisted. 3. Certification and Authentication I certify that I composed the above information based on my clinical judgement relating to this patient's medical condition and, if applicable, clinical findings communicated to me by the NPP or inpatient physician who performed the Home Health Referral. All further orders will be obtained through Dr. Bergman Stand Alone Forms: Nursing Discharge Form Referrals: Mc Bergman MD [ [facility] STAFF PHYSICIAN] - 03/16/22 11:15 am Activity:: Activity as Tolerated Equipment/Supplies:: Walker Diet:: As Tolerated Discharge Orders Discharge Orders: Discharge Order (Routine); Ordered 03/02/22 Ordered By: Mc Bergman DS: Summary Time Spent with Patient providing and/or coordinating discharge services: Less than 30 minutes Status at Discharge Functional status at discharge: uses cane/walker Overall status at discharge: patient is progressing back to baseline Mental Status: mental status grossly normal Speech and Movement: speech and movement normal Mood: congruent mood Affect: normal affect Exam Psych Mental Status: mental status grossly normal Speech and Movement: speech and movement normal Mood: congruent mood Affect: normal affect DS: Data Vitals/I&O Vitals and I&O: Vital Signs Temperature 36.8 C 03/02/22 02:59 Temperature Source Tympanic 03/02/22 02:59 Pulse 56 L 03/02/22 02:59 Pulse Rhythm Irregular 03/02/22 04:06 Respiratory Rate 17 03/02/22 02:59 Respiratory Effort Non-Labored 03/02/22 04:06 Respiratory Depth Normal 03/02/22 04:06 Respiratory Pattern Normal 03/02/22 04:06 Blood Pressure 138/68 03/02/22 02:59 Blood Pressure Mean 105 03/01/22 07:27 Pulse Oximetry 97 03/02/22 02:59 Respiratory End-tidal CO2 34 03/01/22 11:05 Oxygen Delivery Method Room Air 03/02/22 02:59 Oxygen Flow Rate 0 03/02/22 02:59 Pain Level 0 03/02/22 02:59 Comment 03/01/22 20:05 Intake & Output 03/01/22 03/01/22 03/02/22 11:59 23:59 11:59 Intake Total 632.334 / 1144.566 7265.667 / 1787.001 Output Total 150 / 450 300 / 450 Balance 482.334 / 1337.001 854.667 / 1337.001 Weight 112.037 kg Intake: IV 632.334 / 1307.001 674.667 / 1307.001 Oral 480 / 480 Output: Urine 300 / 300 Estimated Blood Loss 150 / 150 Other: Urine Color Light [place] Urine Appearance Clear Clear Clear Urine Odor Normal Emesis Description None Voiding Methods Toilet Data Completed and Pending Labs on day of discharge: Labs from last 24 hours 03/01/22 06:10 COVID-19 Source Nasal/Nares SARS-CoV-2 (PCR) Negative PFSH All Active Problems Sensorineural hearing loss (SNHL) of both ears (Acute) Afib (Chronic) 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) Obesity (Chronic) Osteoarthritis of left knee (Acute) Osteoarthritis of right knee (Acute) Medical History Asthma Chronic shortness of breath Diabetes mellitus type 2 in obese pt/ denies this History of DVT (deep vein thrombosis) History of fracture of right hip HTN (hypertension) Hyperlipidemia Vertigo Surgical History History of cardiac radiofrequency ablation History of revision of total hip arthroplasty 2013 Social History Smoking/Tobacco Use Status: Former Tobacco Use Quit Date: 05/21/90 Smoking risk assessment performed?: Yes Alcohol Intake: never Drug use: Never Substance use type: does not use Do you feel safe at home: Yes Do you feel safe in your relationship?: Yes
[2022-03-02 08:20] VITALS: BP 142/82; PULSE 58; RESP 18; TEMP 36.5; O2SAT 96
[2022-03-02] MEDS: Acetaminophen 500 MG TAB 1000 MG PO ×2 (08:26→14:11)
[2022-03-02] MEDS: Apixaban 5 MG TAB PO (08:27)
[2022-03-02] MEDS: Celecoxib 200 MG CAP PO (08:27)
[2022-03-02] MEDS: Atorvastatin 20 MG TAB PO (08:27)
[2022-03-02] MEDS: Dexamethasone 4 MG TAB PO (08:28)
[2022-03-02] MEDS: Losartan 50 MG TAB 25 MG PO (08:28)
[2022-03-02] MEDS: Gabapentin 300 MG CAP 600 MG PO (08:28)
[2022-03-02] MEDS: Pantoprazole 40 MG TABCR PO (08:28)
[2022-03-02] MEDS: Docusate Sodium 100 MG CAP PO (09:50)
--- NOTE | 2022-03-02 13:12 | PTTR_ITS ---
Date of service: 03/02/22 Time of Service: 10:22 PT Notes Visit Reasons: TKA Inpatient Physical Therapy Treatment Note [facility] Date: 03/02/2022 PRECAUTIONS: WBAT L, activity as tolerated SUBJECTIVE: Beatriz is pleasant and agreeable to participating in PT. She reports that she is feeling good today, and looking forward to going home. She reports concerns regarding taking a shower at home, as her shower/tub set-up is old and will be difficult to manage. She is hoping to get HH PT/OT. OBJECTIVE: PAIN: Patient c/o medial thigh pain with gait training BED MOBILITY/TRANSFERS Sit-stand: I Stand-sit: I GAIT Assistive Device: FWW Weight bearing: WBAT L Assist: S Distance: 150' Deviation: Antalgic gait, step-through gait pattern THEREX: Patient was instructed in a LE strengthening program, completed in a seated position, to include: ankle pumps, LAQ, hip flexion. She was issued a LE strengthening and stabilization HEP. STAIRS: Declined need for stair training at this time. ASSESSMENT: Patient tolerated session well with minimal complaint of medial t high pain with gait training. She demonstrates independence with sit<>stand transfers. PLAN: Patient to discharge to home later today, per provider. Recommend follow up with HH PT/OT upon discharge. TREATMENT CODE/TIME: 28 minutes; 17573 x2 (10:22)
[2022-03-02 15:21] VITALS: BP 159/79; PULSE 69; RESP 18; TEMP 36.9; O2SAT 95
--- NOTE | 2022-03-02 15:40 | CHAPLAIN ---
Beatriz was sitting on the edge of the bed, speaking with her , when I visited. She said she is getting ready to be discharged. She is a member of the [employer] in [place] and her tool builder is away on vacation. I introduced myself, explained my role and offered support.
== END 2022-03-02 17:06 | disposition home health service (06) ==
LOC: MS 11:03 → DSU 03-03 10:14 → MS 03-03 10:17
PROVIDERS: Nurse Anesthetist, Certified Registered; Admitting Provider Student in an Organized Health Care Education/Training Program; PCP Family Medicine; Visit Provider Student in an Organized Health Care Education/Training Program
PROC: 0SRD0JA Replacement of Left Knee Joint with Synthetic Substitute, Uncemented, Open Approach (ICD-10-PCS; CPT 27447; principal; 2022-03-01 07:30)
DX: M17.12 Unilateral primary osteoarthritis, left knee (principal); Z79.01 Long term (current) use of anticoagulants; Z23 Encounter for immunization; Z20.822 Contact with and (suspected) exposure to COVID-19; J45.909 Unspecified asthma, uncomplicated; E11.9 Type 2 diabetes mellitus without complications; E66.9 Obesity, unspecified; Z68.41 Body mass index [BMI] 40.0-44.9, adult; I10 Essential (primary) hypertension; Z86.718 Personal history of other venous thrombosis and embolism; E78.5 Hyperlipidemia, unspecified; E24.9 Cushing's syndrome, unspecified; I48.91 Unspecified atrial fibrillation; I47.1 Supraventricular tachycardia
CPT/HCPCS: 27447; C1776; 76942; 87635; 90662; 97162; 97530; J0690; J1100; J2370; J2405; J8540

== ENCOUNTER 2022-03-17 11:01 | Outpatient (CLI) | payer MEDICARE, SELFPAY ==
--- NOTE | 2022-03-17 10:30 | DI.RAD_ITS ---
Exam(s) XR KNEE LT 1V XR STANDING ALIGNMENT EXAM: XR STANDING ALIGNMENT and XR knee LT 1 V CLINICAL HISTORY: f/u L TKA. TECHNIQUE: 2D digital imaging was performed. Five images were obtained. COMPARISON: CR XR STANDING ALIGNMENT from 02/23/2022 FINDINGS: BONES: There are bilateral total hip replacements. There is a left total knee replacement. No lucen cies are seen in or about the orthopedic hardware to suggest loosening. The right knee shows mild lacie int space narrowing and periarticular spurring. The ankles are well maintained.There is no significa nt leg length discrepancy. SOFT TISSUE: Vascular calcifications are present. IMPRESSION: Left TKA. DATA REPOSITORY: RADIATION DOSE DELIVERED:
== END 2022-03-17 11:02 | disposition home or self-care (01) ==
LOC: DIORS 11:01
PROVIDERS: PCP Registered Nurse Infection Control; Referring Provider Registered Nurse Infection Control; Visit Provider Student in an Organized Health Care Education/Training Program
DX: M17.12 Unilateral primary osteoarthritis, left knee (principal); E66.01 Morbid (severe) obesity due to excess calories; Z79.01 Long term (current) use of anticoagulants
CPT/HCPCS: 73560; 77073

== ENCOUNTER → 2022-03-30 11:01 | Outpatient (BNVA) | payer MEDICARE, SELFPAY | PROVIDERS: PCP Registered Nurse Infection Control; Referring Provider Registered Nurse Infection Control; Visit Provider Student in an Organized Health Care Education/Training Program | DX: Z47.1 Aftercare following joint replacement surgery (principal); Z96.652 Presence of left artificial knee joint ==

== ENCOUNTER → 2022-04-07 10:19 | Outpatient (BNVA) | payer MEDICARE, SELFPAY | PROVIDERS: PCP Registered Nurse Infection Control; Referring Provider Registered Nurse Infection Control; Visit Provider Student in an Organized Health Care Education/Training Program | DX: Z47.1 Aftercare following joint replacement surgery (principal); Z96.652 Presence of left artificial knee joint; E66.01 Morbid (severe) obesity due to excess calories; T81.89XA Other complications of procedures, not elsewhere classified, initial encounter | CPT/HCPCS: 97605; 99212 ==

== ENCOUNTER → 2022-04-17 10:47 | Outpatient (BNVA) | payer MEDICARE, SELFPAY | PROVIDERS: PCP Registered Nurse Infection Control; Referring Provider Registered Nurse Infection Control; Visit Provider Physician Assistant | DX: Z47.1 Aftercare following joint replacement surgery (principal); Z96.652 Presence of left artificial knee joint ==

== ENCOUNTER → 2022-05-01 13:14 | Outpatient (BNVA) | payer MEDICARE, SELFPAY | PROVIDERS: PCP Registered Nurse Infection Control; Referring Provider Registered Nurse Infection Control; Visit Provider Physician Assistant | DX: Z47.1 Aftercare following joint replacement surgery (principal); Z96.652 Presence of left artificial knee joint ==

== ENCOUNTER → 2022-05-18 11:22 | Outpatient (BNVA) | payer MEDICARE, SELFPAY | PROVIDERS: PCP Registered Nurse Infection Control; Referring Provider Registered Nurse Infection Control; Visit Provider Physician Assistant | DX: Z47.1 Aftercare following joint replacement surgery (principal); Z96.652 Presence of left artificial knee joint ==

== ENCOUNTER → 2022-06-01 11:45 | Outpatient (BNVA) | payer MEDICARE, SELFPAY | PROVIDERS: PCP Registered Nurse Infection Control; Referring Provider Registered Nurse Infection Control; Visit Provider Student in an Organized Health Care Education/Training Program | DX: Z47.1 Aftercare following joint replacement surgery (principal); Z96.652 Presence of left artificial knee joint ==

== ENCOUNTER 2023-04-02 14:10 | Outpatient (REF) | payer MEDICARE, SELFPAY ==
[2023-04-02 15:20] LABS: ALT 34 U/L (14-59); AST 29 U/L (15-37); Albumin 3.6 g/dL (3.4-5.0); Alkaline Phosphatase 101 U/L (46-116); Anion Gap 7.2 mmol/L (3-11); BUN 25 mg/dL (7-18); Bilirubin, Total 0.7 mg/dL (0.2-1.0); CO2 27.8 mmol/L (21.0-32.0); Calcium 10.4 mg/dL (8.5-10.1); Chloride 107 mmol/L (98-107); Glucose 93 mg/dL (74-106); Potassium 4.5 mmol/L (3.5-5.1); Sodium 142 mmol/L (136-145); Total Protein 6.7 g/dL (6.4-8.2)
[2023-04-02 15:41] LABS: Hemoglobin A1C 5.8 % (<5.7)
== END 2023-04-02 14:11 | disposition home or self-care (01) ==
LOC: NCHCN 14:10
PROVIDERS: PCP Registered Nurse Infection Control; Visit Provider Family Medicine
DX: I10 Essential (primary) hypertension (principal); E78.5 Hyperlipidemia, unspecified; R79.89 Other specified abnormal findings of blood chemistry; E66.8 Other obesity
CPT/HCPCS: 80053; 83036; 84443

== ENCOUNTER 2023-05-10 14:18 | Outpatient (REF) | payer MEDICARE, SELFPAY | END 2023-05-10 14:19 | disposition home or self-care (01) | LOC: NCHCN 14:18 | PROVIDERS: PCP Registered Nurse Infection Control; Visit Provider Family Medicine | DX: R41.3 Other amnesia (principal) | CPT/HCPCS: 82533 ==

== ENCOUNTER 2023-06-20 04:39 | Outpatient (CLI) | payer MEDICARE, SELFPAY ==
[2023-06-27 12:11] LABS: Dexamethasone 839 ng/dL
== END 2023-06-20 04:40 | disposition home or self-care (01) ==
PROVIDERS: PCP Family Medicine; Visit Provider Student in an Organized Health Care Education/Training Program
DX: E24.0 Pituitary-dependent Cushing's disease (principal)
CPT/HCPCS: 36415; 80299; 82533

== ENCOUNTER 2023-07-21 09:24 | Outpatient (REF) | payer MEDICARE, SELFPAY ==
[2023-07-21 10:03] LABS: Creatinine,24hr Ur 0.95 g/24hr (0.60-1.80); Creatinine,Urine 86.25 mg/dL; Total Volume 1100 ml
[2023-07-25 17:22] LABS: Cortisol, U 12 mcg/24 h (3.5-45); Urine Volume 1100 mL
== END 2023-07-21 09:25 | disposition home or self-care (01) ==
LOC: LBN 09:24
PROVIDERS: PCP Family Medicine; Visit Provider Student in an Organized Health Care Education/Training Program
DX: E24.0 Pituitary-dependent Cushing's disease (principal)
CPT/HCPCS: 81050; 82530; 82570; 83789

== ENCOUNTER 2024-02-21 10:14 | Emergency (ER) | payer MEDICARE, SELFPAY ==
--- NOTE | 2024-02-21 10:15 | DI.RAD_ITS ---
Exam(s) XR SHOULDER RT COMPLETE 2+V EXAM: XR SHOULDER RT COMPLETE 2+V CLINICAL HISTORY: pain s/p fall. TECHNIQUE: 2D digital imaging was performed. Five views. COMPARISON: CR CHEST ONE VIEW IN RAD DEPT from 08/30/2007 FINDINGS: BONES: No acute fracture is present. Old mild fracture deformity of the surgical neck of the humerus . No bony destructive lesion is seen. JOINTS: No dislocation present. Mild degenerative changes glenohumeral joint. SOFT TISSUE: Calcifications near acromion. IMPRESSION: No acute abnormality. DATA REPOSITORY: RADIATION DOSE DELIVERED:
[2024-02-21 10:16] VITALS: BP 162/75; PULSE 70; TEMP 36.2; O2SAT 95
--- NOTE | 2024-02-21 10:25 | W.ED.GENAD ---
Discharge Plan Disposition Patient Disposition: Home Condition: Stable Discharge Details Clinical Impression: Contusion of right shoulder Primary Care Provider: Pauline Austin ED Provider: Roverto Guerra Home Meds and New Rx's Prescriptions: Continued losartan 50 mg tablet 25 mg PO BID triamterene-hydrochlorothiazid 37.5-25 mg tablet 0.5 tab PO DAILY levothyroxine 50 mcg Capsule 50 mcg PO DAILY Eliquis 5 mg tablet 5 mg PO BID atorvastatin [Lipitor] 20 MG tablet 20 mg PO DAILY gabapentin 300 MG capsule 600 mg PO BID multivitamin 1 EACH capsule 1 tab PO DAILY cholecalciferol (vitamin D3) 1,000 UNITS tablet 2,000 units PO DAILY Vitamin C (ascorbate calcium) 480 GM powder 1 tab PO DAILY acetaminophen 500 mg tablet 1,000 mg PO Q8H PRN (Reason: pain) Qty: 90 3RF Discharge Instructions Additional Instructions: your xray did not show any broken bones follow up with your primary care provider if pain continues in a week if you feel more ill or have severe worsening pain return to the emergency department for reevaluation HPI General Date/Time Provider Initiated Documentation: 02/21/24 10:21. Limitations to Documentation: no limitations. Information obtained by: patient. History of Present Illness 84 year old F presents to the emergency department with the chief complaint of right shoulder pain s/p fall, described as moderate, Quality is described as aching, and is localized to the right and upper extremity. Patient reports no radiation. Patient started experiencing this day(s) (1) and it has been constant. Rest improves symptom(s), Movement worsens symptoms . Patient notes no other symptoms.. Related Data Home Medications ?Medication ?Instructions ?Recorded ?Confirmed ascorbate calcium (vitamin C) 814 1 tab PO DAILY 07/22/17 02/21/24 mg/gram oral powder (Vitamin C (ascorbate calcium)) atorvastatin 20 mg tablet (Lipitor) 20 mg PO DAILY 07/22/17 02/21/24 cholecalciferol (vitamin D3) 25 2,000 units PO DAILY 07/22/17 02/21/24 mcg (1,000 unit) tablet gabapentin 300 mg capsule 600 mg PO BID 07/22/17 02/21/24 multivitamin 1 tab PO DAILY 07/22/17 02/21/24 levothyroxine 50 mcg capsule 50 mcg PO DAILY 05/16/21 02/21/24 losartan 50 mg tablet 25 mg PO BID 05/24/21 02/21/24 apixaban 5 mg tablet (Eliquis) 5 mg PO BID 01/13/22 02/21/24 acetaminophen 500 mg tablet 1,000 mg (2 x 500 mg) PO Q8H PRN 03/02/22 02/21/24 pain #90 tabs triamterene 37.5 0.5 tab PO DAILY 09/19/23 02/21/24 mg-hydrochlorothiazide 25 mg tablet Previous Rx's ?Medication ?Instructions ?Recorded acetaminophen 500 mg tablet 1,000 mg (2 x 500 mg) PO Q8H PRN 03/02/22 pain #90 tabs Allergies Allergy/AdvReac Type Severity Reaction Status Date / Time adhesive tape Allergy Intermediate Unknown Verified 02/21/24 10:20 Penicillins Allergy Unknown Unknown Verified 02/21/24 10:20 pregabalin (From Lyrica) Allergy Unknown Other (See Verified 02/21/24 10:20 Comment) Sulfa (Sulfonamide Allergy Unknown Unknown Verified 02/21/24 10:20 Antibiotics) latex Allergy Other (See Verified 02/21/24 10:20 Comment) General Stated Complaint: Orthopedic YAMILA: 4 Review of Systems All systems reviewed & are unremarkable except as noted in HPI and below Constitutional Constitutional: Denies chills, Denies fever(s) and Denies weakness Cardiovascular Cardiovascular: Denies chest pain and Denies dyspnea Respiratory Respiratory: Denies cough and Denies dyspnea Gastrointestinal Gastrointestinal: Denies abdominal pain, Denies nausea and Denies vomiting Neurologic Neurologic: Denies weakness Exam Const General: no acute distress Orientation: alert [facility] Head: normal to inspection Ears: external ears normal General nose exam: external nose normal Mouth: moist mucous membranes Eyes General: appearance normal, both eyes and all related structures Neck Neck: normal visual inspection Resp Effort & Inspection: normal respiratory effort and able to speak in complete sentences Cardio Rate: regular rate Skin General skin exam: no rashes or lesions noted Neuro General: patient alert and patient oriented x3 Extrem General: capillary refill normal, no cyanosis and no edema Psych Mental Status: mental status grossly normal Course Vital Signs Vital signs: Vital Signs Temperature 36.2 C L 02/21/24 10:16 Pulse 70 02/21/24 10:16 Blood Pressure 162/75 H 10/03/24 10:16 Pulse Oximetry 95 10/03/24 10:16 Temperature 36.2 C L 02/21/24 10:16 Temperature Source Oral 02/21/24 10:16 Pulse 70 02/21/24 10:16 Respiratory Effort Normal, Non-Labored 02/21/24 10:22 Blood Pressure 162/75 H 02/21/24 10:16 Pulse Oximetry 95 02/21/24 10:16 Medical Decision Making 84-year-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 She was sitting in a chair and saw her game yesterday when she stood up and lost balance and fell landing on her right arm. She did not hit her head and had no loss of consciousness. She has pain in the right shoulder so came here for evaluation. She denies any headaches, neck pain, back pain, chest or abdomen pain. She has no midline C-spine, T or L-spine tenderness no chest or abdomen tenderness. She has full range of motion of her neck without pain. She has no signs of trauma to the head and denies any nausea or vomiting. She has tenderness over the right lateral shoulder, no distal humerus or mid humerus pain, no pain over the elbow or forearm or wrist or hand. She has intact sensation and pulses. Suspect contusion versus fracture, will obtain x-rays of the shoulder to further evaluate X-ray negative for acute findings, patient is stable. 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) Obesity (Chronic) Osteoarthritis of right knee (Acute) Medical History Asthma Chronic shortness of breath Diabetes mellitus type 2 in obese pt/ denies this History of DVT (deep vein thrombosis) History of fracture of right hip HTN (hypertension) Hyperlipidemia Vertigo Surgical History History of cardiac radiofrequency ablation History of revision of total hip arthroplasty 2013 Social History (Updated 09/19/23 @ 13:55 by Michael Stephens RN) Smoking/Tobacco Use Status: Former Tobacco Use Quit Date: 05/21/90 Smoking risk assessment performed?: Yes Alcohol Intake: never Drug use: Never Substance use type: does not use What is your relationship status?: Panel score (0-1 are the most socially isolated patients): 0 Do you feel safe at home: Yes Do you feel safe in your relationship?: Yes
[2024-02-21] MEDS: Ibuprofen 400 MG TAB PO (11:22)
== END 2024-02-21 11:30 | disposition home or self-care (01) ==
PROVIDERS: Emergency Provider Emergency Medicine; PCP Family Medicine
DX: S40.011A Contusion of right shoulder, initial encounter (principal); E78.5 Hyperlipidemia, unspecified; Z86.718 Personal history of other venous thrombosis and embolism; Z79.01 Long term (current) use of anticoagulants; Z87.891 Personal history of nicotine dependence
CPT/HCPCS: 99283; 73030

== ENCOUNTER 2024-04-04 15:50 | Outpatient (REF) | payer MEDICARE, SELFPAY ==
[2024-04-04 15:08] LABS: Iron 89 ug/dL (50-170); Total Iron Binding Capacity 309 ug/dL (250-450); Transferrin Sat 29 % (15-50)
[2024-04-04 15:20] LABS: Anion Gap 6.4 mmol/L (3-11); BUN 23 mg/dL (7-18); CO2 30.6 mmol/L (21.0-32.0); Calcium 10.4 mg/dL (8.5-10.1); Chloride 109 mmol/L (98-107); Estimated GFR 56.25 (mL/min/1.73m2); Ferritin 38 ng/mL (8-252); Glucose 96 mg/dL (74-106); Potassium 4.9 mmol/L (3.5-5.1); Sodium 146 mmol/L (136-145); TSH (W/Ref FT4) 3.81 uIU/mL (0.36-3.74)
[2024-04-04 16:01] LABS: FREE T4 1.02 ng/dL (0.76-1.46)
== END 2024-04-04 15:51 | disposition home or self-care (01) ==
LOC: NCHCN 15:50
PROVIDERS: PCP Family Medicine; Visit Provider Family Medicine
DX: L65.9 Nonscarring hair loss, unspecified (principal); I10 Essential (primary) hypertension
CPT/HCPCS: 80048; 82728; 83540; 83550; 84439; 84443

== ENCOUNTER 2024-06-12 11:25 | Emergency (ER) | payer MEDICARE, SELFPAY ==
[2024-06-12 11:29] VITALS: BP 167/73; PULSE 76; RESP 18; TEMP 36.6; O2SAT 97
--- NOTE | 2024-06-12 12:41 | ED.GENADUL_ITS ---
Discharge Plan Disposition Patient Disposition: Home Condition: Stable Discharge Details Clinical Impression: Epistaxis Primary Care Provider: Pauline Austin ED Provider: Amparo Rivera Home Meds and New Rx's Prescriptions: New doxycycline hyclate 100 mg capsule 100 mg PO BID Qty: 10 0RF Continued losartan 50 mg tablet 25 mg PO BID triamterene-hydrochlorothiazid 37.5-25 mg tablet 0.5 tab PO DAILY levothyroxine 50 mcg Capsule 50 mcg PO DAILY Eliquis 5 mg tablet 5 mg PO BID atorvastatin [Lipitor] 20 MG tablet 20 mg PO DAILY gabapentin 300 MG capsule 600 mg PO BID multivitamin 1 EACH capsule 1 tab PO DAILY cholecalciferol (vitamin D3) 1,000 UNITS tablet 2,000 units PO DAILY Vitamin C (ascorbate calcium) 480 GM powder 1 tab PO DAILY acetaminophen 500 mg tablet 1,000 mg PO Q8H PRN (Reason: pain) Qty: 90 3RF Discharge Instructions Instructions: Nosebleeds ED Additional Instructions: Take the antibiotics as prescribed, your Rhino Rocket will need to be removed in 5 days, please return to the emergency department or you may call your PCP to see if they will remove the nasal packing Apply bacitracin or Vaseline in your left nostril and sleep with a humidifier in her room Return earlier should you have fever, chills, or with any new or worsening complaints Referrals: Pauline Austin [Primary Care Provider] - 5 days Discharge Data Discharge Date/Time-TO BE ENTERED AT DEPARTURE: 06/12/24 13:03 HPI General Date/Time Provider Initiated Documentation: 06/12/24 11:37 . HPI Narrative: This 84-year-old female states she has had a cold for the past 7 days and has been blowing her nose more frequently. She states that she has had 3 bloody noses since her cold started and she takes Eliquis as attributing the bleeding to Eliquis. Patient denies any fever or chills. Denies any chest pain or shortness of breath. She has any dizziness or weakness. She denies any known trauma to her nose. She states she did place some packing was able to get the bleeding to stop. Denies any headache. Related Data Home Medications ?Medication ?Instructions ?Recorded ?Confirmed ascorbate calcium (vitamin C) 814 1 tab PO DAILY 03/04/18 01/23/25 mg/gram oral powder (Vitamin C (ascorbate calcium)) atorvastatin 20 mg tablet (Lipitor) 20 mg PO DAILY 07/22/17 06/12/24 cholecalciferol (vitamin D3) 25 2,000 units PO DAILY 07/22/17 06/12/24 mcg (1,000 unit) tablet gabapentin 300 mg capsule 600 mg PO BID 07/22/17 06/12/24 multivitamin 1 tab PO DAILY 07/22/17 06/12/24 levothyroxine 50 mcg capsule 50 mcg PO DAILY 05/16/21 06/12/24 losartan 50 mg tablet 25 mg PO BID 05/24/21 06/12/24 apixaban 5 mg tablet (Eliquis) 5 mg PO BID 01/13/22 06/12/24 acetaminophen 500 mg tablet 1,000 mg (2 x 500 mg) PO Q8H PRN 03/02/22 06/12/24 pain #90 tabs triamterene 37.5 0.5 tab PO DAILY 09/19/23 06/12/24 mg-hydrochlorothiazide 25 mg tablet doxycycline hyclate 100 mg capsule 100 mg PO BID #10 caps 06/12/24 Previous Rx's ?Medication ?Instructions ?Recorded acetaminophen 500 mg tablet 1,000 mg (2 x 500 mg) PO Q8H PRN 03/02/22 pain #90 tabs doxycycline hyclate 100 mg capsule 100 mg PO BID #10 caps 06/12/24 Allergies Allergy/AdvReac Type Severity Reaction Status Date / Time adhesive tape Allergy Intermediate Unknown Verified 06/12/24 11:36 Penicillins Allergy Unknown Unknown Verified 06/12/24 11:36 pregabalin (From Lyrica) Allergy Unknown Other (See Verified 06/12/24 11:36 Comment) Sulfa (Sulfonamide Allergy Unknown Unknown Verified 06/12/24 11:36 Antibiotics) latex Allergy Other (See Verified 06/12/24 11:36 Comment) General Stated Complaint: Epistaxis YAMILA: 4 Exam Narrative Exam Narrative: Alert and oriented 84-year-old female in no acute distress, has Kleenex and a clip tripped on her nose and there is no active bleeding at time of my assessment, alert and oriented x 4, packing was removed and I do not actually see any anterior source of bleeding. There is blood noted in the soft palate region but no active bleeding that I can tell. Course Vital Signs Vital signs: Vital Signs Temperature 36.6 C 06/12/24 11:29 Pulse 76 06/12/24 11:29 Respiratory Rate 18 06/12/24 11:29 Blood Pressure 167/73 H 06/12/24 11:29 Pulse Oximetry 97 06/12/24 11:29 Temperature 36.6 C 06/12/24 11:29 Temperature Source Temporal Artery Scan 06/12/24 11:29 Pulse 76 06/12/24 11:29 Respiratory Rate 18 06/12/24 11:29 Blood Pressure 167/73 H 06/12/24 11:29 Blood Pressure Position Sitting 06/12/24 11:29 Pulse Oximetry 97 06/12/24 11:29 Oxygen Delivery Method Room Air 06/12/24 11:29 Oxygen Flow Rate 0 06/12/24 11:29 Pain Level 0 06/12/24 11:29 Procedure Epistaxis Control Date of Procedure: 06/12/24 Time of Procedure: 16:15 Provider that performed the procedure: Amparo Rivera Patient Consented: Verbally Time Out Performed: Yes Nostril: right Direct Inspection: yes Clots Removed by: blowing nose Cautery Used: none Device Inserted: Rhino rocket/nasal tampon Medical Decision Making 84-year-old female in no acute distress, alert and oriented, has had recurrent bleeding and does take Eliquis for DVT history. I will discuss options with patient, I do not see an obvious lesion that I can cauterize anteriorly. While bleeding is stopped she has had 3 episodes and if she remains on Eliquis which she is currently prescribed I fear she may continue to bleed when she blows her nose for upper respiratory infection. I therefore offered Rhino Rocket versus Merisel packing and patient states she would prefer Rhino Rocket at this time. She will be placed on doxycycline as she is a high risk patient for 5 days and the packing will need to be removed 5 days from today's date. Patient discharged home with coagulation achieved in no acute distress. 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) Obesity (Chronic) Osteoarthritis of right knee (Acute) Medical History Asthma Chronic shortness of breath Diabetes mellitus type 2 in obese pt/ denies this History of DVT (deep vein thrombosis) History of fracture of right hip HTN (hypertension) Hyperlipidemia Vertigo Surgical History History of cardiac radiofrequency ablation History of revision of total hip arthroplasty 2013 Social History (Updated 09/19/23 @ 13:55 by Michael Stephens RN) Smoking/Tobacco Use Status: Former Tobacco Use Quit Date: 05/21/90 Smoking risk assessment performed?: Yes Alcohol Intake: never Drug use: Never Substance use type: does not use Housing: apartment What is your relationship status?: Panel score (0-1 are the most socially isolated patients): 0 Do you feel safe at home: Yes Do you feel safe in your relationship?: Yes
== END 2024-06-12 13:03 | disposition home or self-care (01) ==
PROVIDERS: Emergency Provider Physician Assistant; PCP Family Medicine
DX: R04.0 Epistaxis (principal); Z79.01 Long term (current) use of anticoagulants
CPT/HCPCS: 30903

== ENCOUNTER → 2024-09-12 10:28 | Outpatient (BNVA) | payer MEDICARE, SELFPAY | PROVIDERS: PCP Family Medicine; Referring Provider Family Medicine; Visit Provider Internal Medicine Cardiovascular Disease | DX: I48.21 Permanent atrial fibrillation (principal); Z79.01 Long term (current) use of anticoagulants; R06.09 Other forms of dyspnea; R60.0 Localized edema; I10 Essential (primary) hypertension | CPT/HCPCS: 99213 ==

== ENCOUNTER 2024-10-07 19:02 | Outpatient (REF) | payer MEDICARE, SELFPAY ==
[2024-10-07 16:00] LABS: Anion Gap 6.9 mmol/L (3-11); BUN 25 mg/dL (7-18); CO2 30.1 mmol/L (21.0-32.0); CREATININE 1.1 mg/dL (0.55-1.02); Calcium 10.4 mg/dL (8.5-10.1); Chloride 109 mmol/L (98-107); Estimated GFR 50.17 (mL/min/1.73m2); Glucose 108 mg/dL (74-106); Potassium 4.7 mmol/L (3.5-5.1); Sodium 146 mmol/L (136-145); TSH (W/Ref FT4) 3.97 uIU/mL (0.36-3.74)
[2024-10-07 16:13] LABS: Hemoglobin A1C 5.9 % (<5.7)
[2024-10-08 10:52] LABS: FREE T4 1.07 ng/dL (0.76-1.46)
== END 2024-10-07 19:03 | disposition home or self-care (01) ==
LOC: NCHCN 19:02
PROVIDERS: PCP Family Medicine; Visit Provider Family Medicine
DX: E11.9 Type 2 diabetes mellitus without complications (principal); I10 Essential (primary) hypertension
CPT/HCPCS: 80048; 82043; 82570; 83036; 84439; 84443

== ENCOUNTER 2024-11-27 02:29 | Outpatient (CLI) | payer MEDICARE, SELFPAY ==
--- NOTE | 2024-12-02 10:46 | W.NUTRFU ---
Date of service: 11/27/24 Time of Service: 14:00 Nutrition Note NOTE: Beatriz referred to nutrition visit for education/guidance on diet as recently dx with prediabetes (which seems to actually change from prior dx of DM). Her BMI was 39.6 at her provider visit last September. We reviewed goals to lost weight while trying to preserve muscle mass and working to avoid excess starches and sugars while trying to aim for higher fiber versions/choices. We reviewed trying to hit goal of at least 70g protein per day (1.2g/kg IBW) and include legumes, oats, lentils, and other high protein grains and plants to help meet fiber goal as well (at least 20g per day) Suggested avoidance of sweetened bevs most days (even 100% juice). Suggested added sugar goal of staying under 20g per day and periodically tracking to see what her intake is compared to this goal. Encouraged any activity after meals Beatriz has my contact info should she have additional need for follow up, questions or any more resources. Time Spent in Nutritional Counseling and Treatment: 25 min
== END 2024-11-27 02:30 | disposition home or self-care (01) ==
LOC: DS 02:29
PROVIDERS: PCP Family Medicine; Visit Provider Dietitian, Registered
DX: R73.03 Prediabetes (principal)
CPT/HCPCS: 00123; 97802

== ENCOUNTER 2025-02-04 13:25 | Outpatient (CLI) | payer MEDICARE, SELFPAY ==
--- NOTE | 2025-02-04 | DI.RAD_ITS ---
Exam(s) XR CHEST 2V PA LATERAL EXAM: XR CHEST 2V PA LATERAL CLINICAL HISTORY: ACUTE COUGH,R05.1. TECHNIQUE: 2D digital imaging was performed. COMPARISON: No exams were available for comparison FINDINGS: 2 views: There is cardiomegaly. The mediastinum is not widened. Mild increased vascular markings both lungs may be pulmonary venous hypertension pattern. Borderline interstitial edema. No airspace pulmonary edema. There is also platelike atelectasis in the superior lingular segment of the left lung. There are no pleural effusions. IMPRESSION: Cardiomegaly. Pulmonary venous hypertension pattern. DATA REPOSITORY: RADIATION DOSE DELIVERED:
== END 2025-02-04 13:45 ==
LOC: DI 03-20 13:25
PROVIDERS: PCP Family Medicine; Visit Provider Physician Assistant Medical
DX: I51.7 Cardiomegaly (principal); R05.1 Acute cough; R91.8 Other nonspecific abnormal finding of lung field
CPT/HCPCS: 71046

== ENCOUNTER 2025-04-14 14:22 | Outpatient (REF) | payer MEDICARE, SELFPAY ==
[2025-04-14 16:20] LABS: Glucose Negative (Negative)
[2025-04-14 16:22] LABS: Hemoglobin A1C 5.6 % (<5.7)
[2025-04-14 16:28] LABS: Anion Gap 9.2 mmol/L (3-11); BUN 22 mg/dL (9-23); CO2 27.8 mmol/L (20.0-31.0); Calcium 10.4 mg/dL (8.3-10.6); Chloride 108 mmol/L (98-107); Glucose 88 mg/dL (74-106); Potassium 4.9 mmol/L (3.5-5.1); Sodium 145 mmol/L (136-145)
[2025-04-14 16:30] LABS: TSH (W/Ref FT4) 3.44 uIU/mL (0.55-4.78)
[2025-04-14 16:43] LABS: Microalb ug/mg Crea 98.8 ug/mg Cr
== END 2025-04-14 14:23 | disposition home or self-care (01) ==
LOC: NCHCN 14:22
PROVIDERS: PCP Family Medicine; Visit Provider Family Medicine
DX: R39.9 Unspecified symptoms and signs involving the genitourinary system (principal); E03.9 Hypothyroidism, unspecified; R73.03 Prediabetes; I10 Essential (primary) hypertension
CPT/HCPCS: 80048; 81003; 82043; 82570; 83036; 84443

== ENCOUNTER → 2025-04-23 00:22 | Outpatient (CLI) | payer MEDICARE, SELFPAY ==
--- NOTE | 2025-04-23 13:27 | DI.RAD_ITS ---
Exam(s) XR KNEE RT 3V AP,LAT,DORY EXAM: XR KNEE RT 3V AP,LAT,DORY CLINICAL HISTORY: RT KNEE PAIN,M25.561. TECHNIQUE: 2D digital imaging was performed of the right knee. Three views obtained. AP, lateral and PA tunnel views were obtained. COMPARISON: CR RIGHT KNEE COMPLETE from 08/29/2007 CR XR STANDING ALIGNMENT from 03/17/2022 FINDINGS: BONES: No acute fracture is present. No bony destructive lesion is seen. There is an enthesophyte at the anterior patella. The bones are osteopenic. JOINTS: There is marked narrowing of the patellofemoral joint and moderate narrowing of the medial femoral tibial joint. There osteophytes seen in the lateral femoral tibial joint space. There large osteophytes seen at the patellofemoral joint. No joint effusion is seen. SOFT TISSUE: Atherosclerotic calcification is seen. IMPRESSION: Marked osteoarthritis of the right knee, particularly the patellofemoral joint. DATA REPOSITORY: RADIATION DOSE DELIVERED:
== END ==
LOC: DI 00:23
PROVIDERS: PCP Family Medicine; Visit Provider Family Medicine
DX: M25.561 Pain in right knee (principal); M17.11 Unilateral primary osteoarthritis, right knee
CPT/HCPCS: 73562